=== PATIENT | male | born 1955 | race Caucasian/White ===

== ENCOUNTER 2017-07-29 09:56 | Emergency (ER) | payer BC ==
[2017-07-29] MEDS ORDERED: KETOROLAC 60 MG/2 ML VIAL IVP STA (10:52)
[2017-07-29] MEDS ORDERED: ORPHENADRINE 30 MG/ML 2 ML VIAL IVP STA (10:52)
--- NOTE | 2017-07-29 11:00 | ED ---
General Adult HPI - General Chief complaint: Back Pain/Injury Stated complaint: Back pain Time Seen by Provider: 07/29/17 10:00 Source: patient, RN notes reviewed Mode of arrival: ambulatory Limitations: no limitations - History of Present Illness Initial comments: This is a 62-year-old male comes into the emergency department complaining of back spasms with spasms radiating down his legs. Patient denies any numbness or weakness. Patient states it started about 2-3 weeks ago. Patient states he has had no recent injury to his back. Patient states she has not followed up with his primary medical care doctor. Patient denies any urinary incontinence or urinary retention. Patient denies any perineum numbness. Patient states it is worse with sitting or standing up from a sitting position. Patient states standing or lying flat is the most comfortable position. - Related Data Home Medications Medication Instructions Recorded Confirmed ALPRAZolam [Xanax] 0.25 mg PO Q8H PRN 07/29/17 07/29/17 Levothyroxine Sodium [Synthroid] 50 mcg PO DAILY 07/29/17 07/29/17 Tadalafil [Cialis] 20 mg PO DAILY PRN 07/29/17 07/29/17 amLODIPine [Norvasc] 5 mg PO DAILY 07/29/17 07/29/17 lamoTRIgine [LaMICtal] 200 mg PO BID 07/29/17 07/29/17 Previous Rx's Medication Instructions Recorded Diazepam [Valium] 5 mg PO Q6H #10 tab 07/29/17 Hydrocodone/Acetaminophen [[place] 1 each PO Q4HR PRN #20 tab 07/29/17 5-325] Ibuprofen [Motrin] 600 mg PO Q6HR PRN #20 tab 07/29/17 Allergies Allergy/AdvReac Type Severity Reaction Status Date / Time No Known Allergies Allergy Verified 07/29/17 10:16 Review of Systems ROS Statement: Those systems with pertinent positive or pertinent negative responses have been documented in the HPI. ROS Other: All systems not noted in ROS Statement are negative. Past Medical History Past Medical History: GERD/Reflux, Hypertension, Seizure Disorder, Thyroid Disorder Additional Past Medical History / Comment(s): 3 brain bleeds, urinary retentino History of Any Multi-Drug Resistant Organisms: None Reported Past Surgical History: Back Surgery Past Psychological History: No Psychological Hx Reported Smoking Status: Never smoker Past Alcohol Use History: None Reported Past Drug Use History: None Reported General Exam - General Exam Comments Initial Comments: GENERAL: Patient is well-developed and well-nourished. Patient is nontoxic and well- hydrated and is in mild distress. ENT: Neck is soft and supple. No significant lymphadenopathy is noted. Neck has full range of motion without eliciting any pain. EYES: The sclera were anicteric and conjunctiva were pink and moist. Extraocular movements were intact and pupils were equal round and reactive to light. Eyelids were unremarkable. PULMONARY: Unlabored respirations. Good breath sounds bilaterally. No audible rales rhonchi or wheezing was noted. CARDIOVASCULAR: There is a regular rate and rhythm without any murmurs gallops or rubs. ABDOMEN: Soft and nontender with normal bowel sounds. SKIN: Skin is clear with no lesions or rashes and otherwise unremarkable. NEUROLOGIC: Patient is alert and oriented x3. Cranial nerves II through XII are grossly intact. Motor and sensory are also intact. Normal speech, volume and content. Symmetrical smile. Straight leg test is negative to 60 bilaterally. Perineum had normal sensation MUSCULOSKELETAL: Normal extremities with adequate strength and full range of motion. No lower extremity swelling or edema. No calf tenderness. LYMPHATICS: No significant lymphadenopathy is noted PSYCHIATRIC: Normal psychiatric evaluation. Limitations: no limitations Course Vital Signs 07/29/17 10:02 Temperature 97.1 F L Pulse Rate 84 Respiratory 16 Rate Blood Pressure 154/75 O2 Sat by Pulse 98 Oximetry Medical Decision Making - Medical Decision Making I reviewed the patient's blood work and I looked at the patient's x-rays. X- ray showed multiple levels of degenerative disc disease. I reexamined the patient again he had no neurologic deficit. The medicines didn 't help him a little. - Lab Data Result diagrams: 07/29/17 11:00 07/29/17 11:00 Lab Results 07/29/17 07/29/17 Range/Units 11:00 11:00 WBC 6.6 (3.8-10.6) k/uL RBC 5.03 (4.30-5.90) m/uL Hgb 15.4 (13.0-17.5) gm/dL Hct 46.2 (39.0-53.0) % MCV 91.7 (80.0-100.0) fL MCH 30.6 (25.0-35.0) pg MCHC 33.4 (31.0-37.0) g/dL RDW 14.0 (11.5-15.5) % Plt Count 235 (150-450) k/uL Neutrophils % 56 % Lymphocytes % 29 % Monocytes % 7 % Eosinophils % 5 % Basophils % 1 % Neutrophils # 3.7 (1.3-7.7) k/uL Lymphocytes # 1.9 (1.0-4.8) k/uL Monocytes # 0.5 (0-1.0) k/uL Eosinophils # 0.3 (0-0.7) k/uL Basophils # 0.1 (0-0.2) k/uL Sodium 143 (137-145) mmol/L Potassium 4.4 (3.5-5.1) mmol/L Chloride 106 (98-107) mmol/L Carbon Dioxide 30 (22-30) mmol/L Anion Gap 7 mmol/L BUN 18 (9-20) mg/dL Creatinine 1.13 (0.66-1.25) mg/dL Est GFR (MDRD) Af Amer >60 (>60 ml/min/1.73 sqM) Est GFR (MDRD) Non-Af >60 (>60 ml/min/1.73 sqM) Glucose 84 (74-99) mg/dL Calcium 9.3 (8.4-10.2) mg/dL Total Bilirubin 0.3 (0.2-1.3) mg/dL AST 35 (17-59) U/L ALT 43 (21-72) U/L Alkaline Phosphatase 150 H (38-126) U/L Total Protein 6.7 (6.3-8.2) g/dL Albumin 3.9 (3.5-5.0) g/dL Disposition Clinical Impression: Back muscle spasm Disposition: HOME SELF-CARE Condition: Good Instructions: Muscle Spasm (ED) Additional Instructions: Patient should follow-up with his primary medical care doctor soon as possible for a possible MRI. Prescriptions: Diazepam [Valium] 5 mg PO Q6H #10 tab Hydrocodone/Acetaminophen [[place] 5-325] 1 each PO Q4HR PRN #20 tab PRN Reason: Pain Ibuprofen [Motrin] 600 mg PO Q6HR PRN #20 tab PRN Reason: For pain Referrals: Artur Hinojosa MD [Primary Care Provider] - 1-2 days Time of Disposition: 11:49
[2017-07-29 11:08] LABS: Basophils # (A) 0.1 k/uL (0-0.2); Basophils % (A) 1 %; Eosinophils # (A) 0.3 k/uL (0-0.7); Eosinophils % (A) 5 %; HCT 46.2 % (39.0-53.0); HGB 15.4 gm/dL (13.0-17.5); Lymphocytes # (A) 1.9 k/uL (1.0-4.8); Lymphocytes % (A) 29 %; MCH 30.6 pg (25.0-35.0); MCHC 33.4 g/dL (31.0-37.0); MCV 91.7 fL (80.0-100.0); Mean Platelet Volume 6.9; Monocytes # (A) 0.5 k/uL (0-1.0); Monocytes % (A) 7 %; Neutrophils # (A) 3.7 k/uL (1.3-7.7); Neutrophils % (A) 56 %; Platelet Count 235 k/uL (150-450); RBC 5.03 m/uL (4.30-5.90); WBC 6.6 k/uL (3.8-10.6)
[2017-07-29 11:17] LABS: ALT 43 U/L (21-72); AST 35 U/L (17-59); Albumin 3.9 g/dL (3.5-5.0); Alkaline Phosphatase 150 U/L (38-126); Anion Gap 7 mmol/L; Blood Urea Nitrogen 18 mg/dL (9-20); Calcium 9.3 mg/dL (8.4-10.2); Carbon Dioxide 30 mmol/L (22-30); Chloride 106 mmol/L (98-107); Glucose 84 mg/dL (74-99); Potassium 4.4 mmol/L (3.5-5.1); Sodium 143 mmol/L (137-145); Total Bilirubin 0.3 mg/dL (0.2-1.3); Total Protein 6.7 g/dL (6.3-8.2)
--- NOTE | 2017-07-29 11:27 | XR ---
EXAM TYPE: LUMBAR SPINE X RAY SERIES COMPARISON: NONE HISTORY: Pain TECHNIQUE: 4 views are submitted. FINDINGS: Alignment is anatomic. The pedicles are intact. The transverse processes are intact. There is dege nerative disc disease throughout the most marked changes involving L3-4, L4-5 and L5-S1. Multilevel f acet arthropathy noted. IMPRESSION: 1. Multilevel moderate to severe degenerative disc disease
[2017-07-29 12:40] VITALS: BP 138/71; PULSE 77; RESP 18; TEMP 98.1
== END 2017-07-29 12:30 | disposition home or self-care (01) ==
LOC: EC 09:56
DX: M62.830 Muscle spasm of back (principal); I10 Essential (primary) hypertension; E07.9 Disorder of thyroid, unspecified; G40.909 Epilepsy, unspecified, not intractable, without status epilepticus; Z79.899 Other long term (current) drug therapy
CPT/HCPCS: 99283; 96374; 96375; 36415; 80053; 85025; 72110; J2360; J1885

== ENCOUNTER → 2017-08-05 | Outpatient (CLI) | payer BC ==
[2017-08-05 13:55] LABS: Anion Gap 8 mmol/L; Blood Urea Nitrogen 13 mg/dL (9-20); Calcium 9.2 mg/dL (8.4-10.2); Carbon Dioxide 32 mmol/L (22-30); Chloride 102 mmol/L (98-107); Glucose 96 mg/dL (74-99); Potassium 4.5 mmol/L (3.5-5.1); Sodium 142 mmol/L (137-145)
== END | disposition home or self-care (01) ==
LOC: LABWHC1 12:25
PROVIDERS: ATTEND Internal Medicine
DX: M62.838 Other muscle spasm (principal)
CPT/HCPCS: 36415; 80048

== ENCOUNTER 2017-09-08 15:11 | Emergency (ER) | payer BC ==
[2017-09-08 15:42] VITALS: TEMP 98.3
--- NOTE | 2017-09-08 16:23 | ED ---
Fall HPI - General Chief Complaint: Fall Stated Complaint: Confusion/Fall/2ft Time Seen by Provider: 09/08/17 16:08 Source: patient, RN notes reviewed Mode of arrival: wheelchair - History of Present Illness Initial Comments: This is a 62-year-old male who presents to the emergency department with chief complaint of head injury. Patient states that on Friday he was on the second step of a ladder while doing work in his basement. He states that his boot caught and he fell, hitting the back and right side of his head on the concrete floor. 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 He states that after he fell he "saw stars." He reports a headache that he describes as a mild discomfort. He reports blurred vision and seeing triple in his left eye. Denies any other injuries or trauma. He states that he is able to ambulate but is unsteady and has to pick a point to focus on. Denies fever, chills, chest pain, shortness of breath, abdominal pain, nausea or vomiting, constipation or diarrhea, numbness or tingling. - Related Data Home Medications Medication Instructions Recorded Confirmed ALPRAZolam [Xanax] 0.25 mg PO Q8H PRN 07/29/17 09/08/17 Levothyroxine Sodium [Synthroid] 50 mcg PO DAILY 07/29/17 09/08/17 amLODIPine [Norvasc] 5 mg PO DAILY 07/29/17 09/08/17 lamoTRIgine [LaMICtal] 200 mg PO BID 07/29/17 09/08/17 Diazepam [Valium] 5 mg PO Q6H 09/08/17 09/08/17 Allergies Allergy/AdvReac Type Severity Reaction Status Date / Time No Known Allergies Allergy Verified 09/08/17 16:10 Review of Systems ROS Statement: Those systems with pertinent positive or pertinent negative responses have been documented in the HPI. ROS Other: All systems not noted in ROS Statement are negative. Past Medical History Past Medical History: GERD/Reflux, Hypertension, Seizure Disorder, Thyroid Disorder Additional Past Medical History / Comment(s): 3 brain bleeds, urinary retention , lumbar herniated discs and pinched nerve History of Any Multi-Drug Resistant Organisms: None Reported Past Surgical History: Back Surgery Past Psychological History: No Psychological Hx Reported Smoking Status: Never smoker Past Alcohol Use History: None Reported Past Drug Use History: None Reported General Exam - General Exam Comments Initial Comments: General: Awake and alert, well-developed; in no apparent distress. HEENT: Head atraumatic, normocephalic. No contusions or hematomas. Pupils are equal, round and reactive to light. Extraocular movements intact. Oropharynx moist without erythema or exudate. Visual acuity left eye 20/70. Right eye 20/ 40. Both eyes 20/40. Neck: Supple. Normal ROM. Cardiovascular: Regular rate and rhythm. No murmurs, rubs or gallops. Chest symmetrical. Respiratory: Lungs clear to auscultation bilaterally. No wheezes, rales or rhonchi. Normal respiratory effort with no use of accessory muscles. Musculoskeletal: Normal ROM, no tenderness, strength 5/5 bilateral upper and lower extremities. Unsteady gait. Skin: [place], warm and dry without rashes or lesions. Neurological: Alert and oriented x3. CN II-XII grossly intact. Speech is fluent and answers are appropriate. Finger-nose testing is slow. Rapid alternating movements normal. Romberg negative. Unsteady with heel to toe gait. Psychiatric: Normal mood and affect. No overt signs of depression or anxiety noted. Limitations: no limitations Course Vital Signs 09/08/17 15:37 Temperature 98.3 F Pulse Rate 82 Respiratory 18 Rate Blood Pressure 147/74 O2 Sat by Pulse 99 Oximetry Medical Decision Making - Medical Decision Making This is a 62-year-old male who presented to the emergency department for evaluation of head injury. Patient reports a history of multiple brain injuries. He fell from the second rung on a ladder 2 days ago and has been experiencing blurred vision in his left eye as well as headache. Patient states that he normally has an unsteady gait but that it has worsened since his fall. Computed tomography scan of brain and C-spine revealed no acute abnormalities. A workup was performed to rule out any other pathologies that may cause an unsteady gait. EKG revealed a normal sinus rhythm. CBC was normal. Patient is slightly elevated alkaline phosphatase and total creatine kinase. CK-MB was 5.8, however troponin was negative. Patient is in no acute distress and has no current complaints. This case was discussed with attending physician, Dr. Graham. Patient will be discharged home. Recommended follow-up with his primary care provider in 1-2 days. Patient is in agreement with plan voices understanding. All questions were answered. - Lab Data Result diagrams: 09/08/17 17:45 18 17:45 Lab Results 18 18 18 Range/Units 17:45 17:45 17:45 WBC 7.2 (3.8-10.6) k/uL RBC 5.01 (4.30-5.90) m/uL Hgb 14.6 (13.0-17.5) gm/dL Hct 46.8 (39.0-53.0) % MCV 93.3 (80.0-100.0) fL MCH 29.1 (25.0-35.0) pg MCHC 31.2 (31.0-37.0) g/dL RDW 14.1 (11.5-15.5) % Plt Count 229 (150-450) k/uL Neutrophils % 58 % Lymphocytes % 28 % Monocytes % 8 % Eosinophils % 4 % Basophils % 1 % Neutrophils # 4.2 (1.3-7.7) k/uL Lymphocytes # 2.0 (1.0-4.8) k/uL Monocytes # 0.6 (0-1.0) k/uL Eosinophils # 0.3 (0-0.7) k/uL Basophils # 0.1 (0-0.2) k/uL Sodium 143 (137-145) mmol/L Potassium 4.2 (3.5-5.1) mmol/L Chloride 105 (98-107) mmol/L Carbon Dioxide 29 (22-30) mmol/L Anion Gap 9 mmol/L BUN 15 (9-20) mg/dL Creatinine 1.30 H (0.66-1.25) mg/dL Est GFR (MDRD) Af Amer >60 (>60 ml/min/1.73 sqM) Est GFR (MDRD) Non-Af 56 (>60 ml/min/1.73 sqM) Glucose 79 (74-99) mg/dL Calcium 9.5 (8.4-10.2) mg/dL Total Bilirubin 0.4 (0.2-1.3) mg/dL AST 32 (17-59) U/L ALT 31 (21-72) U/L Alkaline Phosphatase 134 H (38-126) U/L Total Creatine Kinase 325 H (55-170) U/L CK-MB (CK-2) 5.8 H* (0.0-2.4) ng/mL CK-MB (CK-2) Rel Index 1.8 Troponin I <0.012 (0.000-0.034) ng/mL Total Protein 6.5 (6.3-8.2) g/dL Albumin 3.7 (3.5-5.0) g/dL - EKG Data EKG Comments: EKG at 17:27:54. Normal sinus rhythm with sinus arrhythmia. Ventricular rate 70 bpm, NE intervals 148, QRS duration 94, QT/QTC 384/414. No evidence of ST segment elevation or depression. - Radiology Data Radiology results: report reviewed CT brain and C-spine without contrast impression: 1. There is no acute fracture or dislocation evident in the cervical spine. 2. No acute intracranial hemorrhage or midline shift is seen. Tiny high right parietal acute scalp hematoma noted. Disposition Clinical Impression: Head injury, acute, without loss of consciousness Disposition: HOME SELF-CARE Condition: Good Instructions: Head Injury (ED) Additional Instructions: Please follow up with primary care provider within 1-2 days. Return to emergency department if symptoms should worsen or any concerns arise. Referrals: Nonstaff,Physician [Primary Care Provider] - 1-2 days Time of Disposition: 18:58
--- NOTE | 2017-09-08 17:01 | CT ---
EXAMINATION TYPE: CT brain kirk waggoner DATE OF EXAM: 09/08/2017 COMPARISON: NONE HISTORY: Patient complains of fall with blow to head 2 days ago. Patient complains of headache and n perez pain. Patient has a history of prior traumatic brain injury. CT DLP: 1390.8 mGycm. Automated Exposure Control for Dose Reduction was Utilized. TECHNIQUE: CT scan of the head and cervical spine are performed without contrast. FINDINGS: There is no acute intracranial hemorrhage or midline shift identified. There is ventricul ar and sulcal prominence consistent with mild age-related cerebral atrophy. There of old encephalomal acia bilateral inferior frontal lobes is noted just above cribriform plate. The globes are intact and the visualized sinuses are clear. The calvarium is intact. Tiny scalp hematoma right parietal region axial image 50 is noted. Cervical spine is visualized in its entirety from C1 through upper thoracic levels and demonstrates s traightened alignment without evidence of acute fracture or dislocation. Prevertebral soft tissue ap pears within normal limits. The C1-C2 articulation is within normal limits on the coronal images. Vertebral body heights are maintained. There is moderate spurring and disc space narrowing C5-C6 and C6-C7 levels. Visualized lung apices are clear. Thyroid gland is felt within normal limits. IMPRESSION: 1. There is no acute fracture or dislocation evident in the cervical spine. 2. No acute intracranial hemorrhage or midline shift is seen. Tiny high right parietal acute scalp he matoma noted.
[2017-09-08] MEDS ORDERED: SODIUM CHLORIDE 0.9% 1,000 ML IV STA (17:12)
[2017-09-08 17:57] LABS: Basophils # (A) 0.1 k/uL (0-0.2); Basophils % (A) 1 %; Eosinophils # (A) 0.3 k/uL (0-0.7); Eosinophils % (A) 4 %; HCT 46.8 % (39.0-53.0); HGB 14.6 gm/dL (13.0-17.5); Lymphocytes % (A) 28 %; MCH 29.1 pg (25.0-35.0); MCHC 31.2 g/dL (31.0-37.0); MCV 93.3 fL (80.0-100.0); Mean Platelet Volume 6.6; Monocytes # (A) 0.6 k/uL (0-1.0); Monocytes % (A) 8 %; Neutrophils # (A) 4.2 k/uL (1.3-7.7); Neutrophils % (A) 58 %; Platelet Count 229 k/uL (150-450); RBC 5.01 m/uL (4.30-5.90); RDW 14.1 % (11.5-15.5); WBC 7.2 k/uL (3.8-10.6)
[2017-09-08 18:08] LABS: ALT 31 U/L (21-72); AST 32 U/L (17-59); Albumin 3.7 g/dL (3.5-5.0); Alkaline Phosphatase 134 U/L (38-126); Anion Gap 9 mmol/L; Blood Urea Nitrogen 15 mg/dL (9-20); Calcium 9.5 mg/dL (8.4-10.2); Carbon Dioxide 29 mmol/L (22-30); Chloride 105 mmol/L (98-107); Glucose 79 mg/dL (74-99); Potassium 4.2 mmol/L (3.5-5.1); Sodium 143 mmol/L (137-145); Total Bilirubin 0.4 mg/dL (0.2-1.3); Total Protein 6.5 g/dL (6.3-8.2)
[2017-09-08 18:19] LABS: Creatine Kinase 325 U/L (55-170)
[2017-09-08 18:32] LABS: Troponin I <0.012 ng/mL (0.000-0.034)
[2017-09-08 18:41] LABS: Creatine Kinase MB 5.8 ng/mL (0.0-2.4)
[2017-09-08 19:13] VITALS: BP 168/91; PULSE 78; RESP 16
== END 2017-09-08 19:13 | disposition home or self-care (01) ==
LOC: EC 15:11
DX: S09.90XA Unspecified injury of head, initial encounter (principal); I10 Essential (primary) hypertension; R07.9 Chest pain, unspecified; G40.909 Epilepsy, unspecified, not intractable, without status epilepticus; Z79.899 Other long term (current) drug therapy; W11.XXXA Fall on and from ladder, initial encounter
CPT/HCPCS: 36415; 70450; 72125; 80053; 82550; 82553; 84484; 85025; 93005; 96360; 99284

== ENCOUNTER → 2018-09-17 | Outpatient (CLI) | payer BC | END | disposition home or self-care (01) | LOC: LABWHC1 11:33 | PROVIDERS: ATTEND Psychiatry & Neurology Neurology | DX: G40.109 Localization-related (focal) (partial) symptomatic epilepsy and epileptic syndromes with simple partial seizures, not intractable, without status epilepticus (principal) | CPT/HCPCS: 36415; 80175 ==

== ENCOUNTER 2019-04-05 21:25 | Observation (INO) | payer BC ==
[2019-04-05] MEDS ORDERED: SODIUM CHLORIDE 0.9% 1,000 ML IV STA ×2 (21:54)
[2019-04-05] MEDS ORDERED: ONDANSETRON 4 MG/2 ML VIAL IVP STA (21:54)
[2019-04-05] MEDS ORDERED: PANTOPRAZOLE 40 MG/10 ML VIAL IVP STA (21:54)
[2019-04-05 23:02] LABS: Anisocytosis Slight; Basophils # (A) 0.1 k/uL (0-0.2); Basophils % (A) 0 %; Eosinophils # (A) 0.1 k/uL (0-0.7); Eosinophils % (A) 1 %; HCT 40.2 % (39.0-53.0); HGB 13.9 gm/dL (13.0-17.5); Lymphocytes # (A) 1.1 k/uL (1.0-4.8); Lymphocytes % (A) 9 %; MCH 29.9 pg (25.0-35.0); MCHC 34.5 g/dL (31.0-37.0); MCV 86.9 fL (80.0-100.0); Mean Platelet Volume 6.9; Monocytes # (A) 0.5 k/uL (0-1.0); Monocytes % (A) 4 %; Neutrophils # (A) 9.7 k/uL (1.3-7.7); Neutrophils % (A) 84 %; Platelet Count 236 k/uL (150-450); RBC 4.63 m/uL (4.30-5.90); WBC 11.6 k/uL (3.8-10.6)
[2019-04-05] MEDS ORDERED: ACETAMINOPHEN TAB 500 MG TAB PO STA (23:02)
[2019-04-05] MEDS ORDERED: MORPHINE SULFATE 4 MG/ML SYRINGE IVP STA (23:02)
[2019-04-05] MEDS ORDERED: IBUPROFEN 800 MG TAB PO STA (23:02)
--- NOTE | 2019-04-05 23:11 | ED ---
Abdominal Pain HPI - General Chief Complaint: Nausea/Vomiting/Diarrhea Stated Complaint: Abd Pain Time Seen by Provider: 04/05/19 21:54 Source: patient, family, RN notes reviewed, old records reviewed Mode of arrival: ambulatory Limitations: no limitations - History of Present Illness Initial Comments: This is a 63-year-old male coming in the ER for evaluation not feeling well. Abdominal pain fevers nausea and vomiting. Occasional diarrhea. Patient states he has history of gallbladder disease no history of surgery. Patient still complaining of significant weakness not feeling well weakness not feeling himself. states patient's been very weak at home as well. Patient denies cough congestion shortness of breath. No significant travel history or sick contacts MD Complaint: abdominal pain (Right upper quadrant) -: days(s) Location: RUQ, epigastric Radiation: RUQ, epigastric Migration to: epigastric Severity: moderate Severity scale (1-10): 4 Quality: cramping, stabbing, aching Consistency: intermittent Improves With: nothing Worsens With: eating Associated Symptoms: nausea, vomiting, diarrhea, fever - Related Data Home Medications Medication Instructions Recorded Confirmed Levothyroxine Sodium [Synthroid] 50 mcg PO DAILY 07/29/17 04/05/19 amLODIPine [Norvasc] 5 mg PO DAILY 07/29/17 04/05/19 lamoTRIgine [LaMICtal] 200 mg PO BID 07/29/17 04/05/19 Cholecalciferol (Vitamin D3) 2,000 unit PO DAILY 04/05/19 04/05/19 [Vitamin D3] Esomeprazole Magnesium [NexIUM] 40 mg PO DAILY 04/05/19 04/05/19 Allergies Allergy/AdvReac Type Severity Reaction Status Date / Time No Known Allergies Allergy Verified 04/05/19 22:26 Review of Systems ROS Statement: Those systems with pertinent positive or pertinent negative responses have been documented in the HPI. ROS Other: All systems not noted in ROS Statement are negative. Past Medical History Past Medical History: GERD/Reflux, Hypertension, Seizure Disorder, Thyroid Disorder Additional Past Medical History / Comment(s): 3 brain bleeds, urinary retention, lumbar herniated discs and pinched nerve History of Any Multi-Drug Resistant Organisms: None Reported Past Surgical History: Back Surgery Past Psychological History: No Psychological Hx Reported Smoking Status: Never smoker Past Alcohol Use History: None Reported Past Drug Use History: None Reported General Exam Limitations: no limitations General appearance: alert, in no apparent distress Head exam: Present: atraumatic, normocephalic, normal inspection Eye exam: Present: normal appearance, EOMI. Absent: scleral icterus, conjunctival injection, periorbital swelling ENT exam: Present: normal exam, mucous membranes moist Neck exam: Present: normal inspection. Absent: tenderness, meningismus, lymphadenopathy Respiratory exam: Present: normal lung sounds bilaterally. Absent: respiratory distress, wheezes, rales, rhonchi, stridor Cardiovascular Exam: Present: regular rate, normal rhythm, normal heart sounds. Absent: systolic murmur, diastolic murmur, rubs, gallop, clicks GI/Abdominal exam: Present: soft, tenderness (Right upper quadrant), normal bowel sounds. Absent: distended, guarding, rebound, rigid Extremities exam: Present: normal inspection, full ROM, normal capillary refill. Absent: tenderness, pedal edema, joint swelling, calf tenderness Back exam: Present: normal inspection Neurological exam: Present: alert, oriented X3, CN II-XII intact Psychiatric exam: Present: normal affect, normal mood Skin exam: Present: warm, dry, intact, normal color. Absent: rash Course Vital Signs 04/05/19 04/05/19 21:50 22:48 Temperature 100.8 F H Pulse Rate 91 84 Respiratory 20 18 Rate Blood Pressure 141/69 O2 Sat by Pulse 95 94 L Oximetry - Reevaluation(s) Reevaluation #1: 04/06/19 00:56 Medical records reviewed Reevaluation #2: 04/06/19 00:56 Patient symptoms are improved Reevaluation #3: 04/06/19 00:56 No Significant acute distress, - Consultations Consultation #1: spoke with Dr Zeng who is okay for admission Medical Decision Making - Medical Decision Making 63 male the ER for evaluation, fever bowel pain nausea vomiting. Likely acute cholecystitis with contracted gallbladder, patient be admitted for surgical evaluation and treatment - Lab Data Result diagrams: 04/05/19 22:45 04/05/19 22:45 Lab Results 04/05/19 04/05/19 04/05/19 Range/Units 22:45 22:45 22:45 WBC 11.6 H (3.8-10.6) k/uL RBC 4.63 (4.30-5.90) m/uL Hgb 13.9 (13.0-17.5) gm/dL Hct 40.2 (39.0-53.0) % MCV 86.9 (80.0-100.0) fL MCH 29.9 (25.0-35.0) pg MCHC 34.5 (31.0-37.0) g/dL RDW 16.0 H (11.5-15.5) % Plt Count 236 (150-450) k/uL Neutrophils % 84 % Lymphocytes % 9 % Monocytes % 4 % Eosinophils % 1 % Basophils % 0 % Neutrophils # 9.7 H (1.3-7.7) k/uL Lymphocytes # 1.1 (1.0-4.8) k/uL Monocytes # 0.5 (0-1.0) k/uL Eosinophils # 0.1 (0-0.7) k/uL Basophils # 0.1 (0-0.2) k/uL Anisocytosis Slight Sodium 133 L (137-145) mmol/L Potassium 4.2 (3.5-5.1) mmol/L Chloride 101 (98-107) mmol/L Carbon Dioxide 23 (22-30) mmol/L Anion Gap 9 mmol/L BUN 15 (9-20) mg/dL Creatinine 1.02 (0.66-1.25) mg/dL Est GFR (CKD-EPI)AfAm >90 (>60 ml/min/1.73 sqM) Est GFR (CKD-EPI)NonAf 79 (>60 ml/min/1.73 sqM) Glucose 131 H (74-99) mg/dL Plasma Lactic Acid Niko 1.0 (0.7-2.0) mmol/L Calcium 8.8 (8.4-10.2) mg/dL Phosphorus 2.9 (2.5-4.5) mg/dL Magnesium 1.9 (1.6-2.3) mg/dL Total Bilirubin 0.7 (0.2-1.3) mg/dL AST 33 (17-59) U/L ALT 24 (21-72) U/L Alkaline Phosphatase 66 (38-126) U/L Creatine Kinase 307 H (55-170) U/L Total Protein 6.8 (6.3-8.2) g/dL Albumin 3.7 (3.5-5.0) g/dL Amylase 66 (30-110) U/L Lipase 74 (23-300) U/L Influenza Type A RNA (Not Detectd) Influenza Type B (PCR) (Not Detectd) 04/05/19 Range/Units 23:00 WBC (3.8-10.6) k/uL RBC (4.30-5.90) m/uL Hgb (13.0-17.5) gm/dL Hct (39.0-53.0) % MCV (80.0-100.0) fL MCH (25.0-35.0) pg MCHC (31.0-37.0) g/dL RDW (11.5-15.5) % Plt Count (150-450) k/uL Neutrophils % % Lymphocytes % % Monocytes % % Eosinophils % % Basophils % % Neutrophils # (1.3-7.7) k/uL Lymphocytes # (1.0-4.8) k/uL Monocytes # (0-1.0) k/uL Eosinophils # (0-0.7) k/uL Basophils # (0-0.2) k/uL Anisocytosis Sodium (137-145) mmol/L Potassium (3.5-5.1) mmol/L Chloride (98-107) mmol/L Carbon Dioxide (22-30) mmol/L Anion Gap mmol/L BUN (9-20) mg/dL Creatinine (0.66-1.25) mg/dL Est GFR (CKD-EPI)AfAm (>60 ml/min/1.73 sqM) Est GFR (CKD-EPI)NonAf (>60 ml/min/1.73 sqM) Glucose (74-99) mg/dL Plasma Lactic Acid Niko (0.7-2.0) mmol/L Calcium (8.4-10.2) mg/dL Phosphorus (2.5-4.5) mg/dL Magnesium (1.6-2.3) mg/dL Total Bilirubin (0.2-1.3) mg/dL AST (17-59) U/L ALT (21-72) U/L Alkaline Phosphatase (38-126) U/L Creatine Kinase (55-170) U/L Total Protein (6.3-8.2) g/dL Albumin (3.5-5.0) g/dL Amylase (30-110) U/L Lipase (23-300) U/L Influenza Type A RNA Not Detected (Not Detectd) Influenza Type B (PCR) Not Detected (Not Detectd) - Radiology Data Radiology results: report reviewed (US GB wall 3mm, CXR negative for acute disease), image reviewed Disposition Clinical Impression: Dehydration, Fever, Nausea & vomiting, Cholecystitis Disposition: ADMITTED IP TO THIS HOSP Condition: Good Is patient prescribed a controlled substance at d/c from ED?: No Referrals: Artur Hinojosa MD [Primary Care Provider] - 1-2 days
[2019-04-05 23:21] LABS: ALT 24 U/L (21-72); AST 33 U/L (17-59); African American GFR (CKD) >90 (>60 ml/min/1.73 sqM); Albumin 3.7 g/dL (3.5-5.0); Alkaline Phosphatase 66 U/L (38-126); Amylase 66 U/L (30-110); Anion Gap 9 mmol/L; Blood Urea Nitrogen 15 mg/dL (9-20); Calcium 8.8 mg/dL (8.4-10.2); Carbon Dioxide 23 mmol/L (22-30); Chloride 101 mmol/L (98-107); Creatine Kinase 307 U/L (55-170); Glucose 131 mg/dL (74-99); Magnesium 1.9 mg/dL (1.6-2.3); Non-African American GFR(CKD) 79 (>60 ml/min/1.73 sqM); Phosphorus 2.9 mg/dL (2.5-4.5); Potassium 4.2 mmol/L (3.5-5.1); Sodium 133 mmol/L (137-145); Total Bilirubin 0.7 mg/dL (0.2-1.3); Total Protein 6.8 g/dL (6.3-8.2)
--- NOTE | 2019-04-06 00:23 | US ---
EXAM: US Abdomen Limited, Gallbladder CLINICAL HISTORY: pain TECHNIQUE: Real-time ultrasound of the right upper quadrant with image documentation. COMPARISON: No relevant prior studies available. FINDINGS: Liver is within normal limits measuring 17 cm Right kidney is 10 cm. No hydronephrosis. Gallbladder: No pericholecystic fluid.. Gallbladder appears slightly contracted. The gallbladder wall is measured at 3 mm. There is a positive ultrasonographic Tony sign. No definite stones seen Common bile duct: No active visualized obscured Pancreas: Obscured by bowel gas IMPRESSION: Gallbladder wall appears be contracted there is some gallbladder wall thickening 3 mm. Reported positive ultrasonographic Tony sign. No gallstones identified. No pericholecystic fluid. Common duct is not demonstrated due to overlying bowel gas
[2019-04-06] MEDS ORDERED: SODIUM CHLORIDE 0.9% 1,000 ML IV ONE ×3 (00:52→14:08)
[2019-04-06] MEDS ORDERED: PIPERACILLIN-TAZOBACTAM 3.375 GM in SODIUM CHLORIDE 0.9% 100 ML IVPB STA (00:53)
[2019-04-06] MEDS ORDERED: ONDANSETRON 4 MG/2 ML VIAL IVP PRN (00:53)
[2019-04-06] MEDS ORDERED: ACETAMINOPHEN TAB 500 MG TAB PO PRN (00:54)
--- NOTE | 2019-04-06 01:38 | XR ---
EXAM: XR Chest, 2 Views CLINICAL HISTORY: TECHNIQUE: Frontal and lateral views of the chest. COMPARISON: No relevant prior studies available. FINDINGS: Lungs: Unremarkable. No consolidation. Pleural space: Unremarkable. No pneumothorax. Heart: Unremarkable. No cardiomegaly. Mediastinum: Unremarkable. Bones/joints: Unremarkable. IMPRESSION: Some mild increased lung markings noted on the lateral projection not seen on the frontal projection raises the possibility of early infiltrate in the retrocardiac region
[2019-04-06 01:42] LABS: Appearance,Urine Clear (Clear); Bilirubin,Urine Negative (Negative); Blood,Urine Negative (Negative); Color,Urine Yellow; Glucose,Urine (UA) Negative (Negative); Ketones,Urine Trace (Negative); Leukocyte Esterase,Urine Negative (Negative); Nitrite,Urine Negative (Negative); Protein,Urine Negative (Negative); Specific Gravity,Urine 1.007 (1.001-1.035); Urobilinogen,Urine <2.0 mg/dL (<2.0)
[2019-04-06 02:02] VITALS: BMI 37.3
[2019-04-06] MEDS: PIPERACILLIN-TAZOBACTAM 3.375 GM in SODIUM CHLORIDE 0.9% 100 ML IVPB SCH ×2 (09:33→19:12)
--- NOTE | 2019-04-06 10:59 | P.GSHP ---
History of Present Illness H&P Date: 04/06/19 Chief Complaint: abdominal pain CHIEF COMPLAINT: Abdominal pain HISTORY OF PRESENT ILLNESS: 63 year old male who presented to the ER with a chief complaint of nausea, vomiting, and diarrhea. He complains of vague right upper quadrant pain. Denies fever or chills. Denies sick contacts. PAST MEDICAL HISTORY: See list. PAST SURGICAL HISTORY: See list. SOCIAL HISTORY: No illicit drug use. REVIEW OF SYSTEMS: CONSTITUTIONAL: Denies fever or chills. HEENT: Denies blurred vision, vision changes, or eye pain. Denies hemoptysis CARDIOVASCULAR: Denies chest pain or pressure. RESPIRATORY: No shortness of breath. GASTROINTESTINAL: Refer to [facility] for pertinent findings HEMATOLOGIC: Denies bleeding disorders. GENITOURINARY: Denies any blood in urine. SKIN: Denies pruitis. Denies rash. PHYSICAL EXAM: VITAL SIGNS: Reviewed. GENERAL: Well-developed in no acute distress. HEENT: No sclera icterus. Extraocular movements grossly intact. Moist buccal mucosa. Head is atraumatic, normocephalic. ABDOMEN: Soft. Nondistended. Tenderness with palpation to right upper quadrant. NEUROLOGIC: Alert and oriented. Cranial nerves II through XII grossly intact. LABORATORY DATA: WBC on admission 11.6. Hemoglobin 13.9. IMAGING: ultrasound gallbladder: gallbladder wall appears to be contracted. There is some gallbladder wall thickening measuring 3 mm. Reported positive sonographic Tony sign. No gallstones identified. No pericholecystic fluid. Common bile duct is not demonstrated due to overlying bowel gas. ASSESSMENT: 1. abdominal pain, nausea, vomiting 2. Acute cholecystitis PLAN: 1. nothing by mouth. Continue IV fluid 2. Continue Zosyn 3. Monitor labs 4. Patient to undergo laparoscopic cholecystectomy today with Dr. Zeng. Nurse practitioner note has been reviewed by physician. Signing provider agrees with the documented findings, assessment, and plan of care. Past Medical History Past Medical History: GERD/Reflux, Hypertension, Seizure Disorder, Thyroid Disorder Additional Past Medical History / Comment(s): 3 brain bleeds 2007, urinary retention, lumbar herniated discs and pinched nerve,head injury skull fracture 09/2007. History of Any Multi-Drug Resistant Organisms: None Reported Past Surgical History: Back Surgery Additional Past Surgical History / Comment(s): bilateral cataract sx, laminec liz. cyst in iliac crest removed on right side. Past Anesthesia/Blood Transfusion Reactions: No Reported Reaction Past Psychological History: No Psychological Hx Reported Smoking Status: Never smoker Past Alcohol Use History: None Reported Past Drug Use History: None Reported - Past Family History Mother Family Medical History: No Reported History Father Family Medical History: Diabetes Mellitus, Myocardial Infarction ([place]), Prostate Disorder Medications and Allergies Home Medications Medication Instructions Recorded Confirmed Type Levothyroxine Sodium [Synthroid] 50 mcg PO DAILY 07/29/17 04/05/19 History amLODIPine [Norvasc] 5 mg PO DAILY 07/29/17 04/05/19 History lamoTRIgine [LaMICtal] 200 mg PO BID 07/29/17 04/05/19 History Cholecalciferol (Vitamin D3) 2,000 unit PO DAILY 04/05/19 04/05/19 History [Vitamin D3] Esomeprazole Magnesium [NexIUM] 40 mg PO DAILY 04/05/19 04/05/19 History Allergies Allergy/AdvReac Type Severity Reaction Status Date / Time No Known Allergies Allergy Verified 04/05/19 22:26 Surgical - Exam Vital Signs Temp Pulse Resp BP Pulse Ox 100.8 F H 91 20 141/69 95 04/05/19 21:50 04/05/19 21:50 04/05/19 21:50 04/05/19 21:50 04/05/19 21:50 Results - Labs 04/05/19 22:45 04/05/19 22:45 Abnormal Lab Results - Last 24 Hours (Table) 04/05/19 04/05/19 04/06/19 Range/Units 22:45 22:45 01:26 WBC 11.6 H (3.8-10.6) k/uL RDW 16.0 H (11.5-15.5) % Neutrophils # 9.7 H (1.3-7.7) k/uL Sodium 133 L (137-145) mmol/L Glucose 131 H (74-99) mg/dL Creatine Kinase 307 H (55-170) U/L Urine Ketones Trace H (Negative) Diabetes panel 04/05/19 Range/Units 22:45 Sodium 133 L (137-145) mmol/L Potassium 4.2 (3.5-5.1) mmol/L Chloride 101 (98-107) mmol/L Carbon Dioxide 23 (22-30) mmol/L BUN 15 (9-20) mg/dL Creatinine 1.02 (0.66-1.25) mg/dL Glucose 131 H (74-99) mg/dL Calcium 8.8 (8.4-10.2) mg/dL AST 33 (17-59) U/L ALT 24 (21-72) U/L Alkaline Phosphatase 66 (38-126) U/L Total Protein 6.8 (6.3-8.2) g/dL Albumin 3.7 (3.5-5.0) g/dL Calcium panel 04/05/19 Range/Units 22:45 Calcium 8.8 (8.4-10.2) mg/dL Phosphorus 2.9 (2.5-4.5) mg/dL Albumin 3.7 (3.5-5.0) g/dL Pituitary panel 04/05/19 Range/Units 22:45 Sodium 133 L (137-145) mmol/L Potassium 4.2 (3.5-5.1) mmol/L Chloride 101 (98-107) mmol/L Carbon Dioxide 23 (22-30) mmol/L BUN 15 (9-20) mg/dL Creatinine 1.02 (0.66-1.25) mg/dL Glucose 131 H (74-99) mg/dL Calcium 8.8 (8.4-10.2) mg/dL Adrenal panel 04/05/19 Range/Units 22:45 Sodium 133 L (137-145) mmol/L Potassium 4.2 (3.5-5.1) mmol/L Chloride 101 (98-107) mmol/L Carbon Dioxide 23 (22-30) mmol/L BUN 15 (9-20) mg/dL Creatinine 1.02 (0.66-1.25) mg/dL Glucose 131 H (74-99) mg/dL Calcium 8.8 (8.4-10.2) mg/dL Total Bilirubin 0.7 (0.2-1.3) mg/dL AST 33 (17-59) U/L ALT 24 (21-72) U/L Alkaline Phosphatase 66 (38-126) U/L Total Protein 6.8 (6.3-8.2) g/dL Albumin 3.7 (3.5-5.0) g/dL
[2019-04-06] MEDS ORDERED: HEPARIN SODIUM,PORCINE 5,000 UNIT/ML 1 ML VIAL SQ ONE (11:15)
[2019-04-06] MEDS ORDERED: ONDANSETRON 4 MG/2 ML VIAL IVP ONE (11:24)
[2019-04-06] MEDS ORDERED: DEXAMETHASONE SOD PHOS (MDV) 100 MG/10 ML VIAL IVP ONE (11:24)
[2019-04-06] MEDS ORDERED: ROCURONIUM BROMIDE 10 MG/ML 10 ML VIAL IV ONE (11:52)
[2019-04-06] MEDS ORDERED: ePHEDrine SULFATE/0.9% NACL/PF 50 MG/5 ML SYRINGE IV ONE ×2 (11:52)
[2019-04-06] MEDS ORDERED: .MORPHINE SULFATE (INJ) 10 MG/ML SYRINGE ONE (11:52)
[2019-04-06] MEDS ORDERED: LABETALOL 5 MG/ML VIAL MDV ONE (11:52)
[2019-04-06] MEDS ORDERED: NEOSTIGMINE 1 MG/ML 10 ML VIAL ONE (11:52)
[2019-04-06] MEDS ORDERED: fentaNYL (PF) 50 MCG/ML 2 ML AMP ONE (11:52)
[2019-04-06] MEDS ORDERED: PROPOFOL 10 MG/ML 20 ML VIAL IV ONE (11:52)
[2019-04-06] MEDS ORDERED: GLYCOPYRROLATE 0.2 MG/ML 2 ML VIAL ONE (11:52)
[2019-04-06] MEDS ORDERED: MIDAZOLAM 2 MG/2 ML VIAL ONE (11:52)
[2019-04-06] MEDS ORDERED: BUPIVACAINE (PF) 0.5% 30 ML VIAL SQ ONE (12:18)
[2019-04-06] MEDS ORDERED: IV FLUID CONTINUATION 300 ML IV ONE (12:20)
[2019-04-06] MEDS ORDERED: LACTATED RINGERS 1,000 ML IV ONE ×3 (12:21→14:24)
--- NOTE | 2019-04-06 12:36 | P.OP ---
Date of Procedure: 04/06/19 Preoperative Diagnosis: Cholecystitis Postoperative Diagnosis: Cholecystitis Procedure(s) Performed: Laparoscopic cholecystectomy Anesthesia: STONEY Surgeon: Jesus Zeng Estimated Blood Loss (ml): 10 Pathology: other (Gallbladder) Condition: stable Disposition: PACU Description of Procedure: The patient was placed on the operating table. The patient received a general endotracheal tube anesthesia. The patients abdomen was prepped and draped in the usual sterile fashion. Through an infraumbilical stab incision, the fascia of the anterior abdominal wall was grasped with a pair of Kochers and then the Veress needle was placed in the peritoneal cavity. Position of the Veress needle was confirmed with positive drop test. The abdomen was then insufflated. After adequate insufflation, the 10 mm trocar was placed in the peritoneal cavity. Following this the laparoscope was placed in the peritoneal cavity. The patient was placed in the head-up, right side up position and then a 5 mm trocar was placed in the right lateral and right subcostal position under direct visualization. A 8 mm trocar was placed in the epigastric position. The gallbladder was grasped in the fundus and infundibulum. Traction on the gallbladder was placed in the lateral and the cephalad positions. The triangle of Calot was visualized.. The cystic duct was bluntly dissected until the union of the cystic duct and common bile duct was seen. A critical view of safety was achieved. The cystic duct was then divided and sealed with the Harmonic scissors. A PDS Endoloop was then placed throughout the cystic duct stump. The cystic artery divided and sealed with the Harmonic scissors. The gallbladder was then removed from the liver bed using Harmonic scissors. The gallbladder was then extracted through the epigastric port site. Operative field was checked for any bleeding spots and Harmonic scissors was used to coagulate the liver bed. The abdomen was irrigated. The trocars were removed. The skin was closed using interrupted 3-0 Vicryl suture. Dermabond dressing were applied. The patient tolerated the procedure well.
--- NOTE | 2019-04-06 13:36 | XR ---
EXAMINATION TYPE: XR chest 1V portable DATE OF EXAM: 04/06/2019 Comparison: 04/06/2019 Clinical History: 63-year-old male remains intubated post surgical Findings: ET tube satisfactory. Cardiac/pericardiac silhouette is moderately enlarged with diffuse interstitial and vascular densities. Possible underlying left effusion and retrocardiac opacity. Impression: Moderate cardiomegaly appears increased from earlier today. Underlying pericardial effusion is also a possibility. Interstitial and vascular densities suggesting pulmonary vascular congestion.
[2019-04-06] MEDS ORDERED: FUROSEMIDE 10 MG/ML 4 ML VIAL IV ONE (13:40)
--- NOTE | 2019-04-06 14:29 | P.PN ---
Progress Note - Text Progress Note Date: 04/06/19 Extubation note: Patient was extubated in recovery room at 2:05 PM. Patient was taking 500-700 mL tidal volumes on spontaneous ventilation, saturations maintained at 95-99% on 40% FiO2, breathing 16-18 times a minute. Patient was extubated to BiPAPsetting 06/25. Patient maintaining saturations of 95-99% on the setting.
[2019-04-06] MEDS: SODIUM CHLORIDE 0.9% 1,000 ML IV SCH (16:14)
[2019-04-06] MEDS: HEPARIN SODIUM,PORCINE 5,000 UNIT/ML 1 ML VIAL SQ SCH (16:23)
[2019-04-06] MEDS: ACETAMINOPHEN IV (For NPO) 1,000 MG in EMPTY BAG 1 BAG IVPB SCH (18:10)
[2019-04-06] MEDS ORDERED: LORazepam 2 MG/ML INJ IV PRN (20:19)
[2019-04-06] MEDS ORDERED: hydrALAZINE HCL 20 MG/ML 1 ML VIAL IVP PRN (21:22)
[2019-04-06] MEDS: MORPHINE SULFATE 4 MG/ML SYRINGE IVP PRN (22:24)
--- NOTE | 2019-04-06 23:52 | P.CONS ---
History of Present Illness - Reason for Consult Consult date: 04/06/19 Sepsis acute cholecystitis and antibiotic recommendation Requesting physician: Jesus Zeng - Chief Complaint Abdominal pain and fever 2 days - History of Present Illness Patient is a 63-year-old male presenting to the ER at [facility] with chief complaints of abdominal pain that had been getting worse for the last 1 week prior to that the patient did have off-and-on right upper quadrant pain, that did not last beyond a day or 2, patient described the pain mostly to the right upper quadrant area more frequently licking pain intensity about 5 out of 10 and no radiation with associated nausea and prior to presentation hospital. Her multiple episodes of vomiting the patient is here was unable to keep anything down patient be complaining of having a fever with chills without any improvement in his symptoms with home remedies the patient did present to [facility] ER patient noticed to have a fever 100.8 the patient was mildly tachycardic and did have elevated white count of 11.1 thousand the patient did have ultrasound of the gallbladder which was contracted gallbladder with wall thickening and concern for cholecystitis and the patient was taken to the OR and status post endoscopic with mastectomy patient be started on Zosyn and questions was consulted for further recommendation regarding antibiotic therapy patient categorically denies any exposure to antibiotics before coming to the hospital Review of Systems Positive points has been mentioned in HPI rest of the systems are negative Past Medical History Past Medical History: GERD/Reflux, Hypertension, Seizure Disorder, Thyroid Disorder Additional Past Medical History / Comment(s): 3 brain bleeds 2007, urinary retention, lumbar herniated discs and pinched nerve,head injury skull fracture 09/2007. History of Any Multi-Drug Resistant Organisms: None Reported Past Surgical History: Back Surgery Additional Past Surgical History / Comment(s): bilateral cataract sx, laminectomy. cyst in iliac crest removed on right side. Past Anesthesia/Blood Transfusion Reactions: No Reported Reaction Past Psychological History: No Psychological Hx Reported Smoking Status: Never smoker Past Alcohol Use History: None Reported Past Drug Use History: None Reported - Past Family History Mother Family Medical History: No Reported History Father Family Medical History: Diabetes Mellitus, Myocardial Infarction ([place]), Prostate Disorder Medications and Allergies Home Medications Medication Instructions Recorded Confirmed Type Levothyroxine Sodium [Synthroid] 50 mcg PO DAILY 07/29/17 04/05/19 History amLODIPine [Norvasc] 5 mg PO DAILY 07/29/17 04/05/19 History lamoTRIgine [LaMICtal] 200 mg PO BID 07/29/17 04/05/19 History Cholecalciferol (Vitamin D3) 2,000 unit PO DAILY 04/05/19 04/05/19 History [Vitamin D3] Esomeprazole Magnesium [NexIUM] 40 mg PO DAILY 04/05/19 04/05/19 History Allergies Allergy/AdvReac Type Severity Reaction Status Date / Time No Known Allergies Allergy Verified 04/05/19 22:26 Physical Exam Vitals: Vital Signs Temp Pulse Pulse Pulse Resp BP BP 04/06/19 14:45 76 13 111/63 04/06/19 14:30 78 12 112/59 04/06/19 14:15 82 12 109/57 04/06/19 14:00 86 12 04/06/19 13:45 89 12 04/06/19 13:30 90 16 04/06/19 13:17 98.3 F 90 16 04/06/19 11:13 99.8 F H 92 17 04/06/19 08:00 16 04/06/19 07:00 97.8 F 71 16 04/06/19 03:01 97.0 F L 75 18 04/06/19 01:32 98.2 F 80 18 112/76 04/06/19 00:56 98.3 F 04/06/19 00:30 78 18 143/76 04/05/19 22:48 84 18 04/05/19 21:50 100.8 F H 91 20 141/69 BP Pulse Ox 04/06/19 14:45 99 04/06/19 14:30 99 04/06/19 14:15 98 04/06/19 14:00 101/54 96 04/06/19 13:45 96/53 97 04/06/19 13:30 104/55 98 04/06/19 13:17 121/58 97 04/06/19 11:13 158/75 93 L 04/06/19 08:00 04/06/19 07:00 110/62 96 04/06/19 03:01 109/61 95 04/06/19 01:32 95 04/06/19 00:56 04/06/19 00:30 99 04/05/19 22:48 94 L 04/05/19 21:50 95 Intake and Output 04/06/19 04/06/19 04/06/19 06:59 14:59 22:59 Intake Total 0 1600 Output Total 500 130 Balance -500 1470 Intake: IV 1600 Oral 0 Output: Urine 500 125 Estimated Blood Loss 5 Other: # Voids 1 1 GENERAL DESCRIPTION: Middle-aged male lying in bed, no distress. No tachypnea or accessory muscle of respiration use. HEENT: Shows Pallor , no scleral icterus. Oral mucous membrane is dry. No pharyngeal erythema or thrush NECK: Trachea central, no thyromegaly. LUNGS: Unlabored breathing. Clear to auscultation anteriorly. No wheeze or crackle. HEART: S1, S2, regular rate and rhythm. No loud murmur ABDOMEN: Soft, mild right upper quadrant tenderness , no guarding or rigidity, no organomegaly EXTREMITIES: No edema of feet. SKIN: No rash, no masses palpable. NEUROLOGICAL: The patient is awake, alert, oriented x3, mood and affect normal. Results CBC & Chem 7: 04/05/19 22:45 04/05/19 22:45 Labs: Abnormal Lab Results - Last 24 Hours (Table) 04/05/19 04/05/19 04/06/19 Range/Units 22:45 22:45 01:26 WBC 11.6 H (3.8-10.6) k/uL RDW 16.0 H (11.5-15.5) % Neutrophils # 9.7 H (1.3-7.7) k/uL Sodium 133 L (137-145) mmol/L Glucose 131 H (74-99) mg/dL Creatine Kinase 307 H (55-170) U/L Urine Ketones Trace H (Negative) Assessment and Plan Assessment: 1-patient presented to the hospital with sepsis in this patient who did have low-grade fever 100.8 mild tachycardia elevated white count source is acute cholecystitis and likely need: Chucky enteric gram-negative pathogen more likely aerobes and less likely anaerobes with no evidence of any perforation at the time of laparoscopic cystectomy (1) Sepsis Current Visit: Yes Status: Acute Code(s): A41.9 - SEPSIS, UNSPECIFIED ORGANISM SNOMED Code(s): 11359157 (2) Cholecystitis Current Visit: Yes Status: Acute Code(s): K81.9 - CHOLECYSTITIS, UNSPECIFIED SNOMED Code(s): 21260362 Plan: 1-Zosyn 3.375 g every 8 hours will provide adequate coverage for underlying pathogen responsible for infection associated with acute cystitis 2-gentle IV fluid 3-after clinical stabilization hopefully will be able to finish therapy with oral antibiotics on discharge Will follow on a clinical condition and cultures to further adjust medication if needed Thank you for this consultation will follow this patient along with you Time with Patient: Greater than 30
--- NOTE | 2019-04-07 | CONS ---
CONSULTATION REASON FOR CONSULTATION: Advice regarding GERD, hypertension, multiple medical issues requested by Dr. Zeng. HISTORY OF PRESENT ILLNESS: This 63-year-old gentleman with past medical history of GERD, hypertension, history of seizure disorder, hypothyroidism, history of brain bleed, is being followed by primary physician elsewhere, was admitted after laparoscopic cholecystectomy. There is no history of chest pain. No history of palpitations, headache, loss of consciousness, nausea, diarrhea, fever, rigors or chills. The patient had a recent fall at after a [place] game and scraped on the left forearm. PAST MEDICAL HISTORY: History of GERD, hypertension, seizure disorder, history of brain bleed. MEDICATIONS: Prior to admission include: 1. Vitamin D3 2000 daily. 2. Lamictal to 200 mg p.o. b.i.d. 3. Norvasc 5 mg. 4. Synthroid 50 mcg p.o. 5. Nexium 40 mg. ALLERGIES: None. FAMILY HISTORY: No history of heart disease or strokes in the family. SOCIAL HISTORY: No history of smoking. No history of alcohol intake. REVIEW OF SYSTEMS: ENT: No diminished vision. No diminished hearing. Cardiovascular: No angina or palpitations. RESPIRATIONS: No cough or hemoptysis. GI no nausea or vomiting. no dysuria. NERVOUS SYSTEM: No numbness or weakness. ALLERGY/IMMUNOLOGY: No asthma or hayfever. MUSCULOSKELETAL as mentioned earlier. HEMATOLOGY/ONCOLOGY: No history of anemia. ENDOCRINE: No history of diabetes or hypothyroidism. CONSTITUTIONAL: As mentioned earlier. DERMATOLOGY: Negative. RHEUMATOLOGY: Negative. PSYCHIATRIC: As mentioned earlier. PHYSICAL EXAMINATION: GENERAL: Alert and oriented times three. VITAL SIGNS: Pulse is 86, blood pressure 140/86, respiration 20, temperature is normal. Pulse ox 94% on 2 L. HEENT: Conjunctivae normal. Oral mucosa moist. NECK is no jugular venous distention. No carotid bruit. No lymph node enlargement. CARDIOVASCULAR is S1, S2. No S3, no S4. RESPIRATION: Breath sounds diminished in the bases. No rhonchi. No crackles. ABDOMEN: Soft, obese. Status post surgery. LEGS are no edema. No swelling. CENTRAL NERVOUS SYSTEM: Higher functions as mentioned earlier. Moves all four limbs. No focal deficits. Lymphatics: No lymph nodes palpable in the neck, axillae or groin. SKIN: No ulcers, rashes and no bleeding. JOINTS: No active deforming arthropathy. LABS: WBC 11.6, sodium 133. ASSESSMENT: 1. Status post laparoscopic cholecystectomy. 2. Hyponatremia. 3. Increased WBC. 4. History of gastroesophageal reflux disease. 5. History of seizure disorder next hypothyroidism next history of brain bleed 2007. 6. Urinary retention. 7. History of degenerative joint disease. 8. Head injury and skull fracture. 9. History of bilateral cataracts and laminectomy. RECOMMENDATIONS AND DISCUSSION: In this 63-year-old gentleman who presented after surgery, at this time, I recommend to continue current medications, management and home medications when the patient is p.o. Otherwise, we will follow the patient closely with you and patient may be asked to follow with primary physician closely. Thank you Dr. Zeng for letting us participate in the care of this patient. Recommend p.r.n. medication for any blood pressure elevations also. MMODL / IJN: [id number] /
[2019-04-07] MEDS: HEPARIN SODIUM,PORCINE 5,000 UNIT/ML 1 ML VIAL SQ SCH ×3 (01:23→15:50)
[2019-04-07] MEDS: ACETAMINOPHEN IV (For NPO) 1,000 MG in EMPTY BAG 1 BAG IVPB SCH ×3 (01:23→11:35)
[2019-04-07] MEDS: SODIUM CHLORIDE 0.9% 1,000 ML IV SCH ×3 (01:26→17:44)
[2019-04-07] MEDS: PIPERACILLIN-TAZOBACTAM 3.375 GM in SODIUM CHLORIDE 0.9% 100 ML IVPB SCH ×3 (03:50→17:21)
[2019-04-07] MEDS: LEVOTHYROXINE 50 MCG TAB PO SCH (06:02)
[2019-04-07] MEDS: MORPHINE SULFATE 4 MG/ML SYRINGE IVP PRN ×2 (06:09→14:28)
[2019-04-07] MEDS: lamoTRIgine 100 MG TAB PO SCH ×2 (07:24→20:52)
[2019-04-07] MEDS: amLODIPine 5 MG TAB PO SCH (07:24)
[2019-04-07] MEDS: PANTOPRAZOLE 40 MG TABLET PO SCH (07:24)
[2019-04-07 08:37] LABS: Basophils # (A) 0.1 k/uL (0-0.2); Basophils % (A) 1 %; Eosinophils % (A) 0 %; HCT 38.7 % (39.0-53.0); HGB 12.9 gm/dL (13.0-17.5); Lymphocytes # (A) 1.2 k/uL (1.0-4.8); Lymphocytes % (A) 11 %; MCH 29.4 pg (25.0-35.0); MCHC 33.2 g/dL (31.0-37.0); MCV 88.4 fL (80.0-100.0); Mean Platelet Volume 6.8; Monocytes # (A) 0.5 k/uL (0-1.0); Monocytes % (A) 5 %; Neutrophils # (A) 9.3 k/uL (1.3-7.7); Neutrophils % (A) 82 %; Platelet Count 244 k/uL (150-450); RBC 4.38 m/uL (4.30-5.90); RDW 13.9 % (11.5-15.5); WBC 11.3 k/uL (3.8-10.6)
[2019-04-07 08:54] LABS: Albumin 3.5 g/dL (3.5-5.0); Calcium 8.5 mg/dL (8.4-10.2); Potassium 4.3 mmol/L (3.5-5.1); Total Bilirubin 0.9 mg/dL (0.2-1.3); Total Protein 6.5 g/dL (6.3-8.2)
[2019-04-07] MEDS ORDERED: PANTOPRAZOLE 40 MG/10 ML VIAL IVP SCH (09:00)
--- NOTE | 2019-04-07 11:32 | XR ---
EXAMINATION TYPE: XR chest 2V DATE OF EXAM: 04/07/2019 COMPARISON: 04/06/2019 INDICATION: Short of breath TECHNIQUE: Frontal and lateral views of the chest are obtained. FINDINGS: The heart size is normal. The pulmonary vasculature is normal. Some streak opacities in the right middle lobe may be some atelectasis. IMPRESSION: 1. Mild streak atelectasis right middle lobe. 2. The patient has been extubated
--- NOTE | 2019-04-07 12:16 | P.PN ---
Subjective Progress Note Date: 04/07/19 CHIEF COMPLAINT: Abdominal pain HISTORY OF PRESENT ILLNESS: 63-year-old male who is status post laparoscopic cholecystectomy. Postop day #1. Patient had to be reintubated yesterday postoperatively but was able to be extubated in the recovery room. Patient repo rts shortness of breath this morning with exertion. He states he walked to the bathroom this morning and became short of breath. He is on 2 L nasal cannula currently. He states he has not been up ambulating in the hallway. He reports abdominal pain to his surgical sites but states it is tolerable at this time. Tolerating diet. Denies nausea or vomiting. Passing flatus. Temperature 100.7 this morning. Repeat 99.3. WBC 11.3. PHYSICAL EXAM: VITAL SIGNS: Reviewed. GENERAL: Well-developed in no acute distress. HEENT: No sclera icterus. Extraocular movements grossly intact. Moist buccal mucosa. Head is atraumatic, normocephalic. ABDOMEN: Soft. Nondistended. Obese. Surgical sites clean dry and intact without drainage or signs of infection. NEUROLOGIC: Alert and oriented. Cranial nerves II through XII grossly intact. ASSESSMENT: 1. Abdominal pain, nausea, vomiting 2. Acute cholecystitis PLAN: 1. Continue diet as tolerated 2. Pain control 3. Monitor WBC. Continue antibiotics. Augmentin at discharge per Dr. Cross's recommendations 4. Will obtain stat chest x-ray due to shortness of breath. Continue use of incentive spirometry. Wean oxygen as tolerated to maintain O2 sat greater than 92%. Spoke with nursing to obtain home oxygen assessment today. 5. Anticipate discharge home tomorrow Nurse practitioner note has been reviewed by physician. Signing provider agrees with the documented findings, assessment, and plan of care. Objective - Vital Signs Vital signs: Vital Signs Temp 99.3 F 04/07/19 11:37 Pulse 90 04/07/19 07:35 Resp 18 04/07/19 07:35 BP 163/92 04/07/19 07:35 Pulse Ox 93 L 04/07/19 11:37 Intake & Output 04/06/19 04/07/19 04/07/19 18:59 06:59 18:59 Intake Total 1700 Output Total 130 Balance 1570 Intake: IV 1700 Output: Urine 125 Estimated Blood Loss 5 Other: Voiding Method Toilet Toilet Urinal Urinal # Voids 1 2 3 - Labs CBC & Chem 7: 04/07/19 07:54 04/07/19 07:54 Labs: Abnormal Lab Results - Last 24 Hours (Table) 04/07/19 04/07/19 Range/Units 07:54 07:54 WBC 11.3 H (3.8-10.6) k/uL Hgb 12.9 L (13.0-17.5) gm/dL Hct 38.7 L (39.0-53.0) % Neutrophils # 9.3 H (1.3-7.7) k/uL Sodium 136 L (137-145) mmol/L Glucose 135 H (74-99) mg/dL Microbiology - Last 24 Hours (Table) 04/05/19 22:45 Blood Culture - Preliminary Blood No Growth after 24 hours
[2019-04-07] MEDS ORDERED: ALBUTEROL NEBULIZED 2.5 MG/3 ML INHALATION PRN (15:09)
--- NOTE | 2019-04-07 16:46 | PN ---
PROGRESS NOTE DATE OF SERVICE: 04/07/2019. This 63-year-old gentleman who was admitted after laparoscopic cholecystectomy is being closely monitored. No chest pain. No palpitations. No fever. The most recent chest x-ray done, which was reviewed by me, showed some cardiomegaly and atelectasis. The patient is being closely monitored at this time. PHYSICAL EXAMINATION: Alert and oriented x3. Pulse is 84, blood pressure 125/70, respirations 16, temperature 99.5, pulse ox 92% on room air. HEENT: Conjunctivae normal. NECK: No jugular venous distention. CARDIOVASCULAR SYSTEM: S1, S2 muffled. RESPIRATORY SYSTEM: Breath sounds diminished at the bases. A few scattered rhonchi. No crackles. ABDOMEN: Soft, obese. Status post surgery. LEGS: No edema. No swelling. NERVOUS SYSTEM: No focal deficit. LABS: WBC 11.3, hemoglobin 12.9. Sodium 136, potassium 4.3. ASSESSMENT: 1. Status post laparoscopic cholecystectomy. 2. Hyponatremia. 3. Increased white count. 4. History of gastroesophageal reflux disease. 5. History of seizure disorder. 6. Hypothyroidism. 7. History of brain bleed in 2007. 8. Urinary retention. 9. History of degenerative joint disease. 10.History of head injury and skull fracture. 11.History of bilateral cataracts. 12.History of laminectomy. RECOMMENDATIONS AND DISCUSSION: I recommend to continue current medications, continue with the monitoring, symptomatic treatment. Otherwise, closely follow with Surgery. Further recommendations to follow. See orders for further details. MMODL / IJN: [id number] /
--- NOTE | 2019-04-07 19:52 | PN ---
PROGRESS NOTE DATE OF SERVICE: 04/07/2019 REASON FOR FOLLOWUP: Acute cholecystitis with fever. INTERVAL HISTORY: The patient is currently afebrile. Patient has been complaining of shortness of breath with minimal exertion. No chest pain though. Very minimal cough, not bringing up any sputum. No nausea, no vomiting. No abdominal pain. No diarrhea. PHYSICAL EXAMINATION: Blood pressure 125/70 with a pulse of 84, temperature 98.5. He is 92% on room air. General description is a middle-aged male lying in bed in no distress. Respiratory system: Unlabored breathing. Clear to auscultation anteriorly. Heart is S1, S2. Regular rate and rhythm. ABDOMEN: Soft, slightly distended. No guarding or rigidity. LABS: Hemoglobin is 12.2, white count 11.3, BUN of 15, creatinine is 1.14. DIAGNOSTIC IMPRESSION AND PLAN: Patient with fever, source of acute cholecystitis. No evidence of any perforation. The patient is status post laparoscopic cholecystectomy. The patient is currently afebrile. White count is mildly elevated. To continue Zosyn once his respiratory system status improves. Switch to oral antibiotic before discharge. Continue supportive care. MMODL / IJN: [id number] /
[2019-04-07] MEDS: ALBUTEROL NEBULIZED 2.5 MG/3 ML INHALATION SCH (20:02)
[2019-04-07] MEDS ORDERED: ACETAMINOPHEN TAB 500 MG TAB PO PRN (20:11)
[2019-04-07] MEDS: HYDROcodone/APAP 7.5-325MG 1 EACH TAB PO PRN (20:50)
[2019-04-08] MEDS: HEPARIN SODIUM,PORCINE 5,000 UNIT/ML 1 ML VIAL SQ SCH ×2 (00:53→07:47)
[2019-04-08] MEDS: PIPERACILLIN-TAZOBACTAM 3.375 GM in SODIUM CHLORIDE 0.9% 100 ML IVPB SCH ×2 (02:24→09:15)
[2019-04-08] MEDS: MORPHINE SULFATE 4 MG/ML SYRINGE IVP PRN (03:56)
[2019-04-08] MEDS: HYDROcodone/APAP 7.5-325MG 1 EACH TAB PO PRN (06:21)
[2019-04-08 06:31] VITALS: RESP 16
[2019-04-08] MEDS: lamoTRIgine 100 MG TAB PO SCH (07:48)
[2019-04-08] MEDS: PANTOPRAZOLE 40 MG TABLET PO SCH (07:48)
[2019-04-08] MEDS: amLODIPine 5 MG TAB PO SCH (07:48)
[2019-04-08] MEDS: LEVOTHYROXINE 50 MCG TAB PO SCH (07:48)
[2019-04-08] MEDS: ALBUTEROL NEBULIZED 2.5 MG/3 ML INHALATION SCH ×2 (08:01→13:11)
[2019-04-08 09:47] LABS: Basophils # (A) 0.1 k/uL (0-0.2); Basophils % (A) 1 %; Eosinophils # (A) 0.2 k/uL (0-0.7); Eosinophils % (A) 2 %; HCT 39.8 % (39.0-53.0); HGB 13.4 gm/dL (13.0-17.5); Lymphocytes # (A) 2.1 k/uL (1.0-4.8); Lymphocytes % (A) 20 %; MCH 29.5 pg (25.0-35.0); MCHC 33.7 g/dL (31.0-37.0); MCV 87.5 fL (80.0-100.0); Monocytes # (A) 0.5 k/uL (0-1.0); Monocytes % (A) 5 %; Neutrophils # (A) 7.1 k/uL (1.3-7.7); Neutrophils % (A) 70 %; Platelet Count 272 k/uL (150-450); RBC 4.55 m/uL (4.30-5.90); RDW 15.3 % (11.5-15.5); WBC 10.2 k/uL (3.8-10.6)
[2019-04-08 10:00] LABS: ALT 36 U/L (21-72); AST 36 U/L (17-59); African American GFR (CKD) >90 (>60 ml/min/1.73 sqM); Albumin 3.6 g/dL (3.5-5.0); Alkaline Phosphatase 72 U/L (38-126); Anion Gap 12 mmol/L; Blood Urea Nitrogen 10 mg/dL (9-20); Calcium 8.5 mg/dL (8.4-10.2); Carbon Dioxide 22 mmol/L (22-30); Chloride 103 mmol/L (98-107); Glucose 112 mg/dL (74-99); Non-African American GFR(CKD) 87 (>60 ml/min/1.73 sqM); Potassium 3.8 mmol/L (3.5-5.1); Sodium 137 mmol/L (137-145); Total Bilirubin 0.9 mg/dL (0.2-1.3); Total Protein 6.9 g/dL (6.3-8.2)
--- NOTE | 2019-04-08 11:04 | CT ---
EXAMINATION TYPE: CT chest angio for PE DATE OF EXAM: 04/08/2019 COMPARISON: Radiograph 04/07/2019 HISTORY: 63-year-old male with shortness of breath TECHNIQUE: Contiguous axial scanning of the chest performed with IV Contrast, patient injected with 7 2 mL of Isovue 370. Coronal/sagittal MIP reconstructions performed. CT DLP: 663.8 mGycm Automated exposure control for dose reduction was used. FINDINGS: Heart upper limits of normal in size. Some prominent epicardial fat is noted. No pericardial effusion . No flattening of the interventricular septum or reflux of contrast into the hepatic veins. Ascending aorta ectatic at 3.8 cm. Bovine configuration to the aortic arch. A couple lower paraesophageal lymph nodes measure up to 9 mm. Nonspecific. Otherwise, no thoracic lym phadenopathy by CT size criteria. There is suboptimal opacification of the pulmonary arterial system without any large central or lobar branch pulmonary embolus. No definite embolus to the proximal segmental level. More distal arterial branches are limited for assessment of emboli. Overall low lung volumes. Respiratory motion artifact in the lower lungs. Prominent focal opacity posteromedial right lung base. Bands of atelectasis right upper lobe and left mid to lower lung with respiratory motion artifact as well. No pleural effusion. Tiny hiatal hernia. Visualized upper abdomen shows healing laparotomy port along the epigastrium. No free air seen. Subcentimeter hypodensity segment 4 left hepatic lobe nonspecific, probable cyst. Bones: Mild endplate spondylosis throughout the thoracic spine. IMPRESSION: 1. SUBOPTIMAL CONTRAST BOLUS WELL BREATHING MOTION. NO DEFINITE PULMONARY EMBOLUS TO THE PROXIM AL SEGMENTAL LEVEL. MANY OF THE MORE DISTAL ARTERIAL BRANCHES ARE NONDIAGNOSTIC AND EMBOLI IN THESE L OCATIONS CANNOT BE EXCLUDED ON THE BASIS OF THIS EXAM. 2. LOW LUNG VOLUMES. FOCAL MEDIAL RIGHT BASILAR OPACITY COULD REPRESENT SEGMENTAL ATELECTASIS OR INFI LTRATE. CORRELATE FOR ANY INFECTIOUS RESPIRATORY SIGNS/SYMPTOMS. THE FORMER IS FAVORED.
[2019-04-08 12:14] VITALS: BP 154/80; TEMP 97.6
[2019-04-08 13:22] VITALS: PULSE 100
--- NOTE | 2019-04-08 13:34 | P.DS ---
Providers Date of admission: 04/07/19 15:15 Expected date of discharge: 04/08/19 Attending physician: Jesus Zeng Consults: 04/06/19 13:05 Consult Physician Routine Consulting Provider: Silas Shirley Consult Reason/Comments: medical management Do you want consulting provider notified?: Yes 04/06/19 14:02 Consult Physician Routine Consulting Provider: Ayden Cross Consult Reason/Comments: Antibiotics, cholecystitis Do you want consulting provider notified?: Yes 04/08/19 12:23 Consult Physician Urgent Consulting Provider: Francisco Nova Consult Reason/Comments: SOB Do you want consulting provider notified?: Yes Primary care physician: Artur [facility] Course: 63-year-old male who present emergency room with the chief complaint of abdominal pain, nausea, and vomiting. Imaging completed revealed evidence of cholecystitis. Patient underwent laparoscopic cholecystectomy with Dr. Zeng. Patient complained of shortness of breath postoperatively. chest x- ray was completed revealing atelectasis. Patient underwent CTA which did not reveal evidence of pulmonary embolism. Pulmonary was consulted for further evaluation and cleared patient for discharge. Patient was also assessed by infectious disease during hospitalization who recommends Augmentin at the time of discharge. Patient reports his shortness of breath has improved and he is feeling well. He is tolerating diet. He is stable for discharge home today per Dr. Zeng. Please see EMR for further hospital course details. Discharge Diagnosis: 1. Abdominal pain, nausea, vomiting 2. Acute cholecystitis Nurse practitioner note has been reviewed by physician. Signing provider agrees with the documented findings, assessment, and plan of care. Patient Condition at Discharge: Stable Plan - Discharge Summary New Discharge Prescriptions: New Amoxicillin/Potassium Clav [Augmentin 875-125 Tablet] 1 tab PO Q12HR #14 tab Hydrocodone/Acetaminophen [[place] 5-325] 1 tab PO Q4HR PRN 3 Days #18 tab PRN Reason: Pain No Action Levothyroxine Sodium [Synthroid] 50 mcg PO DAILY lamoTRIgine [LaMICtal] 200 mg PO BID amLODIPine [Norvasc] 5 mg PO DAILY Esomeprazole Magnesium [NexIUM] 40 mg PO DAILY Cholecalciferol (Vitamin D3) [Vitamin D3] 2,000 unit PO DAILY Discharge Medication List Levothyroxine Sodium [Synthroid] 50 mcg PO DAILY 01/09/18 [History] amLODIPine [Norvasc] 5 mg PO DAILY 07/29/17 [History] lamoTRIgine [LaMICtal] 200 mg PO BID 07/29/17 [History] Cholecalciferol (Vitamin D3) [Vitamin D3] 2,000 unit PO DAILY 04/05/19 [History] Esomeprazole Magnesium [NexIUM] 40 mg PO DAILY 04/05/19 [History] Amoxicillin/Potassium Clav [Augmentin 875-125 Tablet] 1 tab PO Q12HR #14 tab 04/08/19 [Rx] Hydrocodone/Acetaminophen [[place] 5-325] 1 tab PO Q4HR PRN 3 Days #18 tab 04/08/19 [Rx] Follow up Appointment(s)/Referral(s): Artur Hinojosa MD [Primary Care Provider] - 1-2 days Jesus Zeng MD [STAFF PHYSICIAN] - 1 Week Activity/Diet/Wound Care/Special Instructions: No driving while taking [place] No lifting over 10 pounds You may shower. No soaking or tub baths Very light activity until you are reevaluated at your follow up appointment with your surgeon Continue to use your incentive spirometer 10 times an hour at home
--- NOTE | 2019-04-08 14:23 | PN ---
PROGRESS NOTE DATE OF SERVICE: 04/08/2019 This 63-year-old gentleman admitted after laparoscopic cholecystectomy, is improving significantly. No chest pain. No palpitations. No fever. A chest CTA was done which showed no definite evidence of pulmonary embolism. Right basilar opacity was also noted. No chest pain. No palpitations. No fever. PHYSICAL EXAM: Alert and oriented x3. Pulse 102, blood pressure 155/80, respirations 16, temperature 97.2, pulse ox 94% on room air. HEENT: Conjunctivae normal. NECK: No jugular venous distension. CARDIOVASCULAR: S1, S2, muffled. RESPIRATION: Breath sounds diminished at the bases, a few scattered rhonchi. ABDOMEN: Soft, obese, status post surgery. LEGS: No edema, no swelling. NERVOUS SYSTEM: No focal deficits. LABS: WBC is 10.2, hemoglobin is 13.4. Cultures are influenza negative. Cultures are negative so far. ASSESSMENT: 1. Status post laparoscopic cholecystectomy. 2. Hyponatremia. 3. Increased WBC, improved. 4. History of gastroesophageal reflux disease. 5. Right basilar atelectasis, possibly. 6. History of seizure disorder. 7. Hypothyroidism. 8. History of brain bleed in 2007. 9. History of urinary retention. 10.Degenerative joint disease. 11.History of head injury, skull fracture. 12.History of bilateral cataracts. 13.History of laminectomy. RECOMMENDATION: Recommend to continue current management and symptomatic treatment, incentive spirometry, otherwise recommend close followup with primary physician in 1-2 weeks after discharge. Otherwise, closely follow with Surgery. Further recommendations to follow. MMODL / IJN: [id number] /
--- NOTE | 2019-04-08 17:20 | PN ---
PROGRESS NOTE DATE OF SERVICE: 04/08/2019 REASON FOR FOLLOWUP: Fever with acute severe cholecystitis. INTERVAL HISTORY: The patient was seen on rounds at noon. The patient has been afebrile. The patient overall is feeling better. He has been breathing comfortably on room air. He did have some shortness of breath on exertion, though. No nausea, no vomiting. No abdominal pain and no diarrhea. PHYSICAL EXAMINATION: Blood pressure 154/80 with a pulse of 92, temperature 97.6. He is 94% on room air. General description is a middle-aged male up in the bed in no distress. RESPIRATORY SYSTEM: Unlabored breathing. Clear to auscultation. No wheeze or crackle. HEART: S1, S2. Regular rate and rhythm. ABDOMEN: Soft. Slightly distended. No tenderness. LABS: Hemoglobin 13.4, white count 10.2, creatinine 0.94. Blood culture has been negative. DIAGNOSTIC IMPRESSION AND PLAN: Patient admitted to hospital with a fever secondary to severe cholecystitis, status post laparoscopic cholecystectomy. Patient seems to have shown clinical improvement. He has been afebrile. White count normal. On room air. Antibiotic switched over to Augmentin 875 b.i.d. for about 7-10 days with close outpatient followup. MMODL / IJN: [id number] /
--- NOTE | 2019-04-08 20:27 | CONS ---
CONSULTATION PULMONARY/CRITICAL CARE CONSULTATION: DATE OF SERVICE: 04/08/2019 This patient is a very pleasant 63-year-old male admitted to the hospital on April 05. He came in through the emergency room. His emergency room complaint included primarily just not feeling well. In addition, he complained of abdominal pain, fevers, nausea and vomiting. He had occasional diarrhea as well. The patient apparently was found to have cholecystitis and underwent surgery on April 06. Today is postoperative day number 2. We were asked to see him to clear him for discharge. The surgeons and other doctors taking care of him were concerned about a chest x-ray showing some atelectasis and also a CT scan which failed to reveal a pulmonary embolism but did reveal some atelectasis. Anyway, the patient is doing well. He is not on any supplemental oxygen. Denies any difficulty breathing. No coughing or wheezing. No phlegm production. No hemoptysis. No fever or chills. No nausea, vomiting or diarrhea. The patient is a lifelong nonsmoker. He has no history of any lung disease. He does have a history of sleep apnea, for which he uses CPAP. HOME MEDICATIONS: His home medications include: 1. Levothyroxine. 2. Amlodipine. 3. Lamictal. 4. Vitamin D3. 5. Nexium. ALLERGIES: DENIED. MEDICAL HISTORY: His medical history includes: 1. Hypothyroidism. 2. Hypertension. 3. Seizure disorder. 4. Acid reflux disease. 5. Gallbladder disease. 6. He also apparently has a history of urinary retention. 7. Lumbar disc disease. 8. Pinched nerve. 9. Apparently 3 brain bleeds. SURGICAL HISTORY: Surgical history includes only back surgery. SOCIAL HISTORY: Negative for tobacco, alcohol or illicit drug use. FAMILY HISTORY: Noncontributory. Mother and father are healthy. REVIEW OF SYSTEMS: CONSTITUTIONAL: Negative. NEUROLOGIC: Negative. HEENT: Negative. CARDIOVASCULAR: Negative. PULMONARY: Negative. GI: Initial admission review of systems was positive for abdominal pain, nausea, vomiting, diarrhea and fever. : Negative. RHEUMATOLOGIC: Negative. IMMUNOLOGIC: Negative. ENDOCRINOLOGIC: Negative. DERMATOLOGIC: Negative. PHYSICAL EXAMINATION: VITAL SIGNS: Vital signs are reviewed. Temperature is 97.6, heart rate 90, respiratory rate 16, blood pressure 154/80, mean 104, room-air saturation 94%. GENERAL: Appears in no acute distress. HEENT: HEENT examination is grossly unremarkable. NECK: Supple. Full range of motion. No adenopathy or thyromegaly. Neck veins are flat. CARDIOVASCULAR: Cardiovascular examination reveals regular rhythm and rate. Heart rate in the high 80s, low 90s. Regular rhythm. Probably in sinus. S1, S2 normal. No murmur. LUNGS: Clear. Breath sounds are equal. No wheezes, rhonchi or crackles. ABDOMEN: Soft. Bowel sounds are heard. EXTREMITIES: Intact. No cyanosis, clubbing or edema. SKIN: Without rash. NEUROLOGIC: Neurologic examination is brief but nonfocal. LABS: Reviewed. White count 10.2, hemoglobin 13.4, hematocrit 39.8, platelet count normal. Sodium, potassium, chloride, CO2 all normal. Anion gap normal. BUN and creatinine were normal. The rest of the electrolytes and comprehensive metabolic profile were normal. Urine is negative. Influenza studies were negative. IMAGING: The patient's initial chest x-ray back on 04/06 suggested the possibility of some retrocardiac infiltrate or atelectasis. A follow-up x-ray on 04/06 showed some cardiomegaly. There was some mild vascular congestion. A repeat chest x-ray yesterday showed some mild streak atelectasis. It was mostly in the right middle lobe. A follow- up CT angiogram on 04/08 shows no evidence of pulmonary emboli. There were low lung volumes. There was some medial right basilar opacity which likely represented atelectasis. Medications are reviewed. They all seem appropriate. He is on Zosyn. He is also getting breathing treatments. Those can be discontinued. ASSESSMENT: 1. Postoperative day number 2, status post laparoscopic cholecystectomy done under general anesthesia. 2. Postoperative atelectasis. 3. Sleep apnea syndrome, currently on CPAP. 4. History of gastroesophageal reflux disease. 5. History of hypertension. 6. History of seizure disorder. 7. History of hypothyroidism. PLAN: From the pulmonary perspective, the patient is ready for discharge. Additional recommendations and suggestions are forthcoming. I did recommend that the patient continue with deep breathing, coughing and clearing of secretions. We also recommend taking the incentive spirometer home and using it at least 3 or 4 times a day to avoid any additional atelectasis. He needs followup with his primary care physician and Surgery. No additional recommendations are made. MMODL / IJN: [id number] /
--- NOTE | 2019-04-12 08:54 | CDI ---
Documentation Clarification Form Date: 04/12/2019 8:21:17 AM From: MAYA Balderas; Tori Rodriguez, [employer] Phone: If you have a question about this query, please contact Tori Rodriguez at between 8 am and 5 pm. Admit Date: 04/07/2019 3:15:00 PM Patient Name: Arron Cameron Visit Number: [id number] Discharge Date: 04/08/2019 2:35:00 PM ATTENTION: The Clinical Documentation Specialists (CDI) and [facility] Coding Staff appreciate your assistance in clarifying documentation. Please respond to the clarification below the line at the bottom and electronically sign. The CDI & [facility] Coding staff will review the response and follow-up if needed. Please note: Queries are made part of the Legal Health Record. If you have any questions, please contact the author of this message via ITS. Dr. Jesus Zeng The patient presented with acute cholecystitis and was made OBV and cholecystectomy was performed. On 04-07, patient was made IP. Patient was reintubated after surgery but successfully extubated in recovery room. Patient had shortness of breath with exertion. He was on 2L nasal cannula. Patient was to continue use of spirometry. He also developed fever and was started on Zosyn. History/Risk Factors: GERD, hypertension, seizure disorder, thyroid disease, history of TBI. Clinical Indicators: Abdominal pain, nausea and vomiting. Lab findings: WBC 11.3, Radiology findings: Atelectasis on x-ray 04-07 Vital Signs: 04-07 Temp 100.7, WBC 11.3 : In your professional opinion, can you please clarify the reason patient was made inpatient status? Please specify Unable to determine The patient was weak and had shortness of breath postoperatively. Unable to determine the cause. LINNETTED
== END 2019-04-08 14:35 | disposition home or self-care (01) ==
LOC: EC 21:25 → UNDOADMOB 04-06 00:48 → 3SCARD 04-06 00:48 → 4MS4W 04-06 00:52 → UNDOADMOB 04-06 00:52 → 4MS4W 04-06 00:53 → INTOOBSV 04-07 15:15 → OBSVTOIN 04-07 15:15 → UNDODISIN 04-08 14:35
PROVIDERS: ADMIT Surgery; ATTEND Surgery
PROC: 0FT44ZZ Resection of Gallbladder, Percutaneous Endoscopic Approach (ICD-10-PCS; principal; 2019-04-07)
DX: K80.12 Calculus of gallbladder with acute and chronic cholecystitis without obstruction (principal); R06.02 Shortness of breath; E87.1 Hypo-osmolality and hyponatremia; J98.11 Atelectasis; E03.9 Hypothyroidism, unspecified; R53.1 Weakness; E86.0 Dehydration; G40.909 Epilepsy, unspecified, not intractable, without status epilepticus; G47.30 Sleep apnea, unspecified; I11.9 Hypertensive heart disease without heart failure; R33.9 Retention of urine, unspecified; M51.36 Other intervertebral disc degeneration, lumbar region; G58.9 Mononeuropathy, unspecified; K21.9 Gastro-esophageal reflux disease without esophagitis; M19.90 Unspecified osteoarthritis, unspecified site; Z79.890 Hormone replacement therapy; Z79.899 Other long term (current) drug therapy; Z87.820 Personal history of traumatic brain injury; Z98.42 Cataract extraction status, left eye; Z98.41 Cataract extraction status, right eye; Z86.79 Personal history of other diseases of the circulatory system; Z99.89 Dependence on other enabling machines and devices; Z82.49 Family history of ischemic heart disease and other diseases of the circulatory system; Z83.3 Family history of diabetes mellitus
CPT/HCPCS: 47562; 96361; 96374; 96375; 99285; 36415; 94640 ×3; 94002; 88304; 80053 ×3; 82150; 82550; 83605; 83690; 83735; 84100; 85025 ×3; 81003; 87040; 87502; 71045; 71046 ×2; 76705; 71275; G0378 ×3; J2543 ×3; J2250; J2060; J2270 ×5; J1644 ×3; J1940; J2710; J2405 ×2; J3010; J1100; J0131 ×2; J2704; C9113 ×2; Q9967; 94660

== ENCOUNTER 2021-06-11 19:00 | Emergency (ER) | payer OTHER, BC ==
[2021-06-11 19:13] VITALS: RESP 18
[2021-06-11] MEDS ORDERED: DIAZEPAM 5 MG/ML 2 ML INJ IVP STA (19:29)
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
--- NOTE | 2021-06-11 20:16 | XR ---
EXAMINATION TYPE: XR shoulder complete LT DATE OF EXAM: 06/11/2021 COMPARISON: NONE HISTORY: Shoulder pain TECHNIQUE: 3 views FINDINGS: I see no fracture nor dislocation. There is some spurring at the AC joint. Scapula is intac t. IMPRESSION: No acute abnormality of the left shoulder.
[2021-06-11] MEDS ORDERED: KETOROLAC 30 MG/ML 1 ML VIAL IVP STA ×2 (20:17→20:18)
--- NOTE | 2021-06-11 20:17 | XR ---
EXAMINATION TYPE: XR chest 2V DATE OF EXAM: 06/11/2021 COMPARISON: 04/07/2019 HISTORY: Short of breath TECHNIQUE: 2 views FINDINGS: There is no heart failure nor confluent pneumonic infiltrate. Costophrenic angles are clear . There are no hilar masses. IMPRESSION: No active cardiopulmonary disease. No adverse change compared to old exam.
[2021-06-11 21:26] VITALS: BP 164/94; PULSE 112; TEMP 99.3
== END 2021-06-11 21:26 | disposition home or self-care (01) ==
LOC: EC 19:00
DX: S46.812A Strain of other muscles, fascia and tendons at shoulder and upper arm level, left arm, initial encounter (principal); I10 Essential (primary) hypertension; G40.909 Epilepsy, unspecified, not intractable, without status epilepticus; K21.9 Gastro-esophageal reflux disease without esophagitis; Z79.899 Other long term (current) drug therapy; Z72.89 Other problems related to lifestyle; V89.2XXA Person injured in unspecified motor-vehicle accident, traffic, initial encounter; Y92.410 Unspecified street and highway as the place of occurrence of the external cause
CPT/HCPCS: 73030; 71046; 72125; 70450; 99284; 96374; 96375; J3360; J1885

== ENCOUNTER → 2021-09-17 | Outpatient (CLI) | payer MEDICARE, BC | END | disposition home or self-care (01) | LOC: LABWHC1 16:02 | PROVIDERS: ATTEND Urology | DX: C61 Malignant neoplasm of prostate (principal) | CPT/HCPCS: 36415; 84153 ==

== ENCOUNTER → 2021-10-03 | Outpatient (CLI) | payer OTHER ==
[2021-10-03 09:14] VITALS: BP 136/72; PULSE 101; RESP 16; TEMP 98.4
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
== END ==
LOC: PNWHC3 08:01
PROVIDERS: ATTEND Physician Assistant Medical
DX: M50.30 Other cervical disc degeneration, unspecified cervical region (principal); M51.26 Other intervertebral disc displacement, lumbar region; I10 Essential (primary) hypertension; G40.909 Epilepsy, unspecified, not intractable, without status epilepticus
CPT/HCPCS: 99211

== ENCOUNTER 2021-11-02 07:18 | Day surgery (SDC) | payer OTHER ==
[2021-11-01 10:48] VITALS: BMI 41.3
[~2021-11-02 07:18] MED LIST: LACTATED RINGERS 1,000 ML IV SCH; LIDOCAINE 1% (10MG/ML) FOR IV START INTRADERMA PRN
[2021-11-02 07:45] VITALS: TEMP 97.7
[2021-11-02] MEDS ORDERED: MIDAZOLAM 2 MG/2 ML VIAL ONE (08:06)
[2021-11-02] MEDS ORDERED: ROPIVACAINE 5MG/ML 20ML VIAL ONE (08:06)
[2021-11-02] MEDS ORDERED: fentaNYL (PF) 50 MCG/ML 2 ML AMP ONE (08:06)
[2021-11-02] MEDS ORDERED: methylPREDNISolone ACETATE 40 MG/ML 1 ML VIAL ONE (08:06)
[2021-11-02] MEDS ORDERED: IV FLUID CONTINUATION 600 ML IV ONE (08:45)
--- NOTE | 2021-11-02 08:46 | P.PCN ---
Date of Procedure: 11/02/21 Procedure(s) Performed: PREOPERATIVE DIAGNOSIS: 1-Cervical Spondylosis with Facet Arthropathy.without myelopathy. 2-cervical degenerative disc disease. 3-fashion pain syndrome and cervical paraspinal muscles POSTOPERATIVE DIAGNOSIS: Same as preoperative diagnosis. PROCEDURES:1- Diagnostic bilateral C3, C4 , C5 medial branch blocks, with fluoroscopic guidance (fluoroscopy images available in radiology department ) ( to target the facet joint at bilateral C3-4 , C4- [address] 2-trigger point injections cervical paraspinal muscles Bilaterally ,3on the right side and 4 on the left side ( total 7 trigger points injected ) ANESTHESIA: Monitored anesthesia care as per anesthesia department . EBL: Minimal PROCEDURE INDICATION: The patient with neck pain secondary to cervical arthropathy unresponsive to more conservative treatments. PROCEDURE DESCRIPTION / TECHNIQUE: The patient was seen and identified in the preoperative area. Risks, benefits, complications, and alternatives were discussed with the patient, the patient agreed to proceed with the procedure and signed the consent. IV was started. Vital signs remained stable throughout the procedure. Patient was taken to the OR and time out was completed. The patient was placed in the supine position on the procedure table,. The cervical area was prepped and draped in the usual sterile fashion. Critical pause was taken. Vital signs were closely monitored during the procedure. Conscious sedation was used during the procedure to decrease patients anxiety. Using cross-table lateral fluoroscopy, the centroid of the trapezoid of right C3, C4 , C5 was identified, marked, and localized with 1% lidocaine 1 ml at each level for skin and Sub Q infiltrations . Subsequently, a 22 G 3 spinal needle was advanced guided by fluoroscopy to the centroid of the trapezoid of Right C3, C4 , C5, . York tip position was confirmed at the centroid of the trapezoids of Right C3 , C4 , C5 , with anteroposterior fluoroscopy. Subsequently, 1.5 ml of preservative-free Ropivacaine 0.5% mixed with Depo- Medrol 20 mg and half ml of the mixture was injected after negative aspiration for blood and CSF. York was then removed intact the same procedure was repeated at the left C3 , C4 , C5 , levels. And after that patient return to sitting position, the neck area prepped again with chlorhexidine 3 and then under sterile technique, using 25-gauge needle, trigger point injection done a history of technique 3 trigger point injected the right side cervical paraspinal muscles, and 4 trigger point injected on the left side cervical paraspinal muscles, each of the trigger point injected with ropivacaine 0.5%, 2 ml injected at each trigger points, after negative aspiration, and there was no paresthesia during the injection, patient tolerated the procedure well without any complications COMPLICATIONS: No acute complications. DISPOSITION / PLANS: The patient was placed in a supine position and transferred to the recovery area in a stable condition for observation and was discharged from the recovery room after meeting discharge criteria. Home discharge instructions given to the patient by the staff. The patient was reexamined prior to discharge. The patient will schedule a follow up in the clinic in 2-4 weeks.
--- NOTE | 2021-11-02 08:48 | FL ---
EXAMINATION TYPE: FL guided pain mgmt statistic DATE OF EXAM: 11/02/2021 CLINICAL HISTORY: Neck pain. TECHNIQUE: Fluoroscopy. COMPARISON: None. FINDINGS: Fluoroscopic guidance was provided during pain relief procedure performed by Dr. Beasley . A total of 17 seconds of fluoroscopic time was utilized during the procedure and two spot images a re acquired. Images acquired shows needle localization in the upper cervical spine. IMPRESSION: As Above.
[2021-11-02 09:11] VITALS: BP 130/69; RESP 16
[2021-11-02 09:50] VITALS: PULSE 80
== END 2021-11-02 09:38 | disposition home or self-care (01) ==
LOC: ORPAIN 07:18
PROVIDERS: ATTEND Specialist
DX: M47.812 Spondylosis without myelopathy or radiculopathy, cervical region (principal); M50.30 Other cervical disc degeneration, unspecified cervical region
CPT/HCPCS: 20553; 64490; J2250; J1030; J3010; J2795

== ENCOUNTER 2022-07-25 19:39 | Emergency (ER) | payer MEDICARE, BC ==
[2022-07-25 20:34] VITALS: TEMP 98
[2022-07-25 21:03] LABS: Basophils # (A) 0.1 k/uL (0-0.2); Basophils % (A) 1 %; Eosinophils # (A) 0.1 k/uL (0-0.7); Eosinophils % (A) 1 %; HGB 15.8 gm/dL (13.0-17.5); Lymphocytes # (A) 0.8 k/uL (1.0-4.8); Lymphocytes % (A) 8 %; MCH 30.1 pg (25.0-35.0); MCHC 34.3 g/dL (31.0-37.0); MCV 87.7 fL (80.0-100.0); Mean Platelet Volume 7.8; Monocytes # (A) 0.4 k/uL (0-1.0); Monocytes % (A) 4 %; Neutrophils # (A) 8.4 k/uL (1.3-7.7); Neutrophils % (A) 85 %; Platelet Count 201 k/uL (150-450); RBC 5.24 m/uL (4.30-5.90); RDW 13.5 % (11.5-15.5); WBC 9.9 k/uL (3.8-10.6)
[2022-07-25 21:12] LABS: Albumin 3.7 g/dL (3.5-5.0); Calcium 8.5 mg/dL (8.4-10.2); Potassium 3.6 mmol/L (3.5-5.1); Total Bilirubin 0.6 mg/dL (0.2-1.3); Total Protein 6.9 g/dL (6.3-8.2)
[2022-07-25 21:14] LABS: Partial Thromboplastin Time 24.2 sec (22.0-30.0); Prothrombin Time 10.7 sec (9.0-12.0)
--- NOTE | 2022-07-26 00:39 | XR ---
EXAMINATION TYPE: XR chest 2V DATE OF EXAM: 07/26/2022 COMPARISON: 06/11/2021 HISTORY: Short of breath TECHNIQUE: FINDINGS: Heart and mediastinum are normal. Lungs are clear. Diaphragm is normal. Bony thorax is inta ct. There are no hilar masses. The pulmonary vascularity is normal. IMPRESSION: No active cardiopulmonary disease. No change.
--- NOTE | 2022-07-26 02:32 | ED ---
General Adult HPI - General Chief complaint: Shortness of Breath Stated complaint: BABITA Time Seen by Provider: 07/25/22 23:57 Source: patient Mode of arrival: ambulatory Limitations: no limitations - History of Present Illness Initial comments: This is a 67-year-old male that was sent into the emergency department by urgent care to rule out bilateral pneumonia. The patient stated that he has had shortness of breath with body aches and feeling "crappy" over the last 1 weeks' he went to urgent care today. He did state that he was given doses of antibi otics and was told that he could have bilateral pneumonia and to come to the emergency department for further evaluation. The patient was not swabbed for any infections at that time. The patient denied any acute chest pain or shortness of breath currently and did state that he had some minor fevers last week but not any in the recent days. The patient denied any fevers, chills, nausea and vomiting currently. The patient also was unaware of any recent sick contacts. The patient did not complain of any further pain or acute distress. - Related Data Home Medications Medication Instructions Recorded Confirmed amLODIPine [Norvasc] 10 mg PO DAILY 07/29/17 11/01/21 lamoTRIgine [LaMICtal] 250 mg PO BID 07/29/17 11/01/21 Esomeprazole Magnesium [NexIUM] 40 mg PO DAILY 04/05/19 11/01/21 ALPRAZolam [Xanax] 0.25 mg PO BID PRN 11/01/21 11/01/21 Cyclobenzaprine [Flexeril] 10 mg PO HS 11/01/21 11/01/21 Previous Rx's Medication Instructions Recorded Hydrocodone/Acetaminophen [[place] 1 tab PO Q4HR PRN 3 Days #18 tab 04/08/19 5-325] Allergies Allergy/AdvReac Type Severity Reaction Status Date / Time No Known Allergies Allergy Verified 11/01/21 10:53 Review of Systems ROS Statement: Those systems with pertinent positive or pertinent negative responses have been documented in the HPI. ROS Other: All systems not noted in ROS Statement are negative. Past Medical History Past Medical History: GERD/Reflux, Hypertension, Seizure Disorder, Thyroid Disorder Additional Past Medical History / Comment(s): 3 brain bleeds 2007, urinary retention, lumbar herniated discs and pinched nerve,head injury skull fracture 09/2007. History of Any Multi-Drug Resistant Organisms: None Reported Past Surgical History: Back Surgery, Cholecystectomy, Orthopedic Surgery Additional Past Surgical History / Comment(s): bilateral cataract sx, laminectomy. cyst in iliac crest removed on right side. Past Anesthesia/Blood Transfusion Reactions: No Reported Reaction Past Psychological History: No Psychological Hx Reported Smoking Status: Never smoker Past Alcohol Use History: Occasional Past Drug Use History: None Reported - Past Family History Mother Family Medical History: No Reported History Father Family Medical History: Diabetes Mellitus, Myocardial Infarction ([place]), Prostate Disorder General Exam Limitations: no limitations General appearance: alert, in no apparent distress, obese Head exam: Present: atraumatic, normocephalic, normal inspection Eye exam: Present: normal appearance, PERRL Pupils: Present: normal accommodation ENT exam: Present: normal exam, normal oropharynx, mucous membranes moist Neck exam: Present: normal inspection, full ROM Respiratory exam: Present: normal lung sounds bilaterally Cardiovascular Exam: Present: regular rate, normal rhythm, normal heart sounds GI/Abdominal exam: Present: soft, normal bowel sounds Extremities exam: Present: normal inspection, full ROM Back exam: Present: normal inspection, full ROM Neurological exam: Present: alert, oriented X3, CN II-XII intact Psychiatric exam: Present: normal affect, normal mood Skin exam: Present: warm, dry Course Vital Signs 07/25/22 20:31 Temperature 98 F Pulse Rate 93 Respiratory 20 Rate Blood Pressure 156/77 O2 Sat by Pulse 94 L Oximetry EKG Findings - EKG Comments: EKG Findings:: An EKG was obtained and was interpreted by myself. Initial EKG showed a rate of 80, AK interval of 144, QR rastafarian of 154 and QTC of 445. This EKG did show normal sinus rhythm with a right bundle branch block however there were questionable ST segment elevations in lead V1 versus early repolarization. Due to this and the setting of changes from previous EKG in 2018, repeat EKG was performed 30 minutes later and was interpreted by myself. This repeat EKG showed a rate of 86, AK interval of 147, QR rastafarian of 1 4070 QTC of 450. This again showed a normal sinus rhythm with right bundle branch block however there was no further concerns for ST segment elevations or depressions and was likely secondary to the right bundle branch block. Medical Decision Making - Medical Decision Making Was pt. sent in by a medical professional or institution ([facility], [facility], urgent care, hospital, or [facility]...) When possible be specific @ -Yes, urgent care Did you speak to anyone other than the patient for history (EMS, parent, family, police, friend...)? What history was obtained from this source @ -No Did you review nursing and triage notes (agree or disagree)? Why? @ -I reviewed and agree with nursing and triage notes Were old charts reviewed (outside hosp., previous admission, EMS record, old EKG, old radiological studies, urgent care reports/EKG's, [facility] records)? Report findings @ -No old charts were reviewed Differential Diagnosis (chest pain, altered mental status, abdominal pain women, abdominal pain men, vaginal bleeding, weakness, fever, dyspnea, syncope, headache, dizziness, GI bleed, back pain, seizure, CVA, palpatations, mental health)? @ -Bilateral pneumonia, ACS, influenza, COVID-19, RSV EKG interpreted by me (3pts min.). @ -As above X-rays interpreted by me (1pt min.). @ -Chest x-ray was obtained and was interpreted by myself showing no acute process with no change from previous CXR CT interpreted by me (1pt min.). @ -None done U/S interpreted by me (1pt. min.). @ -None done What testing was considered but not performed or refused? (CT, X-rays, U/S, labs)? Why? @ -None What meds were considered but not given or refused? Why? @ -None Did you discuss the management of the patient with other professionals (professionals i.e. [facility], [facility], lab, RT, psych nurse, social studies department chair, cnp, teacher, general service officer, case resource manager)? Give summary @ -No Was smoking cessation discussed for >3mins.? @ -No Was critical care preformed (if so, how long)? @ -No Were there social determinants of health that impacted care today? How? (Homelessness, low income, unemployed, alcoholism, drug addiction, transportation, low edu. Level, literacy, decrease access to med. care, halfway, rehab)? @ -No Was there de-escalation of care discussed even if they declined (Discuss DNR or withdrawal of care, Hospice)? DNR status @ -No What co-morbidities impacted this encounter? (DM, HTN, Smoking, COPD, CAD, Cancer, CVA, ARF, Chemo, Hep., AIDS, mental health diagnosis, sleep apnea, morbid obesity)? @ -Hypertension, previous TBI Was patient admitted / discharged? Hospital course, mention meds given and route, prescriptions, significant lab abnormalities, going to OR and other pertinent info. @ -The patient was seen and evaluated emergency department. Physical exam, the patient was resting in bed without any acute distress. Vital signs were stable. All laboratory workup and chest x-ray was negative. Swab was positive for influenza A. The patient likely had his symptoms secondary to influenza and was deemed stable for discharge. The patient did have all his questions answered appropriately and he was advised to follow-up in the emergency department if he had worsening shortness of breath or difficulty in breathing. The patient did agree to this and he was discharged home in stable condition. Undiagnosed new problem with uncertain prognosis? @ -No Drug Therapy requiring intensive monitoring for toxicity (Heparin, Nitro, Insulin, Cardizem)? @ -No Were any procedures done? @ -No Diagnosis/symptom? @ -Influenza A Acute, or Chronic, or Acute on Chronic? @ -Acute Uncomplicated (without systemic symptoms) or Complicated (systemic symptoms)? @ -Uncomplicated Side effects of treatment? @ -No Exacerbation, Progression, or Severe Exacerbation? @ -No Poses a threat to life or bodily function? How? (Chest pain, [place], [place], pneumonia, PE, COPD, DKA, ARF, appy, cholecystitis, CVA, Diverticulitis, Homicidal, Suicidal, threat to staff... and all critical care pts) @ -No - Lab Data Result diagrams: 07/25/22 20:38 07/25/22 20:38 Lab Results 07/25/22 07/25/22 07/25/22 Range/Units 20:38 20:38 20:38 WBC 9.9 (3.8-10.6) k/uL RBC 5.24 (4.30-5.90) m/uL Hgb 15.8 (13.0-17.5) gm/dL Hct 46.0 (39.0-53.0) % MCV 87.7 (80.0-100.0) fL MCH 30.1 (25.0-35.0) pg MCHC 34.3 (31.0-37.0) g/dL RDW 13.5 (11.5-15.5) % Plt Count 201 (150-450) k/uL MPV 7.8 Neutrophils % 85 % Lymphocytes % 8 % Monocytes % 4 % Eosinophils % 1 % Basophils % 1 % Neutrophils # 8.4 H (1.3-7.7) k/uL Lymphocytes # 0.8 L (1.0-4.8) k/uL Monocytes # 0.4 (0-1.0) k/uL Eosinophils # 0.1 (0-0.7) k/uL Basophils # 0.1 (0-0.2) k/uL PT 10.7 (9.0-12.0) sec INR 1.0 (<1.2) APTT 24.2 (22.0-30.0) sec Sodium 137 (137-145) mmol/L Potassium 3.6 (3.5-5.1) mmol/L Chloride 104 (98-107) mmol/L Carbon Dioxide 23 (22-30) mmol/L Anion Gap 10 mmol/L BUN 21 H (9-20) mg/dL Creatinine 1.03 (0.66-1.25) mg/dL Est GFR (CKD-EPI)AfAm 88 (>60 ml/min/1.73 sqM) Est GFR (CKD-EPI)NonAf 76 (>60 ml/min/1.73 sqM) Glucose 120 H (74-99) mg/dL Calcium 8.5 (8.4-10.2) mg/dL Total Bilirubin 0.6 (0.2-1.3) mg/dL AST 34 (17-59) U/L ALT 33 (4-49) U/L Alkaline Phosphatase 142 H (38-126) U/L Troponin I (0.000-0.034) ng/mL NT-Pro-B Natriuret Pep pg/mL Total Protein 6.9 (6.3-8.2) g/dL Albumin 3.7 (3.5-5.0) g/dL Influenza Type A (PCR) (Not Detectd) Influenza Type B (PCR) (Not Detectd) RSV (PCR) (Not Detectd) SARS-CoV-2 (PCR) (Not Detectd) 07/25/22 07/26/2223 Range/Units 20:38 01:00 01:28 WBC (3.8-10.6) k/uL RBC (4.30-5.90) m/uL Hgb (13.0-17.5) gm/dL Hct (39.0-53.0) % MCV (80.0-100.0) fL MCH (25.0-35.0) pg MCHC (31.0-37.0) g/dL RDW (11.5-15.5) % Plt Count (150-450) k/uL MPV Neutrophils % % Lymphocytes % % Monocytes % % Eosinophils % % Basophils % % Neutrophils # (1.3-7.7) k/uL Lymphocytes # (1.0-4.8) k/uL Monocytes # (0-1.0) k/uL Eosinophils # (0-0.7) k/uL Basophils # (0-0.2) k/uL PT (9.0-12.0) sec INR (<1.2) APTT (22.0-30.0) sec Sodium (137-145) mmol/L Potassium (3.5-5.1) mmol/L Chloride (98-107) mmol/L Carbon Dioxide (22-30) mmol/L Anion Gap mmol/L BUN (9-20) mg/dL Creatinine (0.66-1.25) mg/dL Est GFR (CKD-EPI)AfAm (>60 ml/min/1.73 sqM) Est GFR (CKD-EPI)NonAf (>60 ml/min/1.73 sqM) Glucose (74-99) mg/dL Calcium (8.4-10.2) mg/dL Total Bilirubin (0.2-1.3) mg/dL AST (17-59) U/L ALT (4-49) U/L Alkaline Phosphatase (38-126) U/L Troponin I <0.012 (0.000-0.034) ng/mL NT-Pro-B Natriuret Pep 137 pg/mL Total Protein (6.3-8.2) g/dL Albumin (3.5-5.0) g/dL Influenza Type A (PCR) Detected A (Not Detectd) Influenza Type B (PCR) Not Detected (Not Detectd) RSV (PCR) Not Detected (Not Detectd) SARS-CoV-2 (PCR) Not Detected (Not Detectd) Disposition Clinical Impression: Influenza A Disposition: HOME SELF-CARE Condition: Stable Instructions (If sedation given, give patient instructions): Influenza (DC) Is patient prescribed a controlled substance at d/c from ED?: No Referrals: Ronak Proctor MD [Primary Care Provider] - 1-2 days Time of Disposition: 02:15
[2022-07-26 02:33] VITALS: BP 124/72; PULSE 83; RESP 16
== END 2022-07-26 02:58 | disposition home or self-care (01) ==
LOC: EC 19:39
DX: J10.1 Influenza due to other identified influenza virus with other respiratory manifestations (principal); I10 Essential (primary) hypertension; K21.9 Gastro-esophageal reflux disease without esophagitis; Z79.899 Other long term (current) drug therapy; Z20.822 Contact with and (suspected) exposure to COVID-19
CPT/HCPCS: 36415; 71046; 80053; 83880; 84484; 85025; 85610; 85730; 87040; 87636; 93005; 99285